=== PATIENT | male | born 1945 | race Caucasian/White ===

== ENCOUNTER → 2017-10-21 14:37 | Outpatient (CLI) | payer OTHER, SELFPAY ==
--- NOTE | 2017-10-21 | DI.RAD.S_ITS ---
PROCEDURE: XR ABDOMEN 1V INDICATIONS: KIDNEY STONE TECHNIQUE: One view of the abdomen acquired. COMPARISON: [facility], , ABDOMEN 1 VIEW, 01/29/2017, 13:52. FINDINGS: Surgical changes and devices: None. Bowel: Bowel gas pattern is normal. Soft tissues: The left kidney is mostly obscured by stool filled colon however these suspicious calcification over the mid body on last exam and appears to be present. In addition, there are 2 mm calcifications over the central portion of the right kidney. Visualized solid organ contours appear normal in size. Bones: No suspicious bony lesions. IMPRESSION: Probable bilateral nephrocalcinosis Dictated by: Juwan Skelton M.D. on 10/21/2017 at 15:04 Approved by: Juwan Skelton M.D. on 10/21/2017 at 15:06
== END ==
PROVIDERS: Visit Provider Urology
DX: N20.0 Calculus of kidney (principal)
CPT/HCPCS: 74018

== ENCOUNTER → 2017-12-05 13:48 | Outpatient (CLI) | payer OTHER, SELFPAY ==
--- NOTE | 2017-12-05 15:04 | P.PCN_ITS ---
Cardiac Stress Test Report Referral & Results Date Patient Seen: 12/05/17 Requesting provider: Vin Samson Indication: Chest pain Rest ECG: Unremarkable Procedure Note: Today following both written and verbal informed consent the patient was exercised according to a standard Eduar protocol patient went for a total of 7 min 28 sec achieving a maximum heart rate of 160 maximum systolic blood pressure of 210. This is approximately 10.1 METS. Exercise was terminated at this point because of 2-3 + mid chest discomfort as well as inability the patient to continue. Patient was also given Cardiolite through a previously started Hep-Lock IV by the nuclear technician approximately 1 minute prior to the cessation of exercise. There are no ST-T segment changes Occasional frequent PACs or identified throughout. For 5 beat runs of an SVT type pattern were also identified Patient was hypertensive throughout Functional aerobic impairment rated-10% on the active scale or 10% better than average Impression: No evidence of ischemia Excellent exercise capacity Dysrhythmia as above Hypertension as above Perfusion imaging to be reported separately Please note: Actual ECG tracings can be found in the PACS system.
--- NOTE | 2017-12-10 07:51 | DI.NM.S_ITS ---
DATE OF SERVICE: 12/05/2017 PROCEDURE: Exercise perfusion study. INDICATION: Abnormal exercise stress test, chest pain. RADIOPHARMACEUTICAL: 25.9 mCi technetium-99m Myoview IV was injected at stress, and 20.1 mCi technetium-99m Myoview IV was injected at rest. CARDIAC STRESS: Patient underwent exercise perfusion study under the supervision of an attending staff. She walked on Eduar protocol for 7 minutes 28 seconds, achieved maximum heart rate of 147, which was about 91% of target heart rate. Baseline blood pressure 190/100. Peak blood pressure 210/108. There was hypertensive blood pressure response. Patient has high blood pressure to begin with as well. Patient felt mid chest discomfort which was, on a scale of 1 to 10, about 2-3 in intensity. Got improved during recovery. Baseline rhythm was sinus in left axis. During stress, there was some nonspecific upsloping ST depression in leads V4 to V6 without any convincing ischemia. Occasional PACs and 1 short run of SVT. Functional aerobic impairment 0% on active scale. Achieved 10.1 METs of workload. RAW DATA: There was increased subdiaphragmatic activity. GATED STUDY: Stress LV ejection fraction 65%. I don't see any obvious wall motion abnormalities. Resting end-diastolic volume 117 mL. No transient ischemic dilatation. TID ratio 1.00, which is within normal limits. Lung/heart ratio is 0.39, which is within normal limits. MYOCARDIAL PERFUSION SCAN: Stress supine, resting supine, and stress prone images were compared to each other. Stress supine and resting supine images revealed small-sized mildly decreased perfusion of inferior wall and inferior apex, which got resolved during prone images, suggestive of diaphragmatic tissue attenuation artifact. No convincing ischemia on prone images. CONCLUSION: As far as perfusion scan is concerned, this is a normal myocardial perfusion scan with evidence of diaphragmatic tissue attenuation artifact which got resolved during prone images. However, patient has chest discomfort during exercise. He has hypertensive blood pressure response. No convincing ischemic EKG changes. No sustained ventricular arrhythmias. Correlate clinically and consider aggressive blood pressure control and risk factor modification. Alda Antonio - PHYSICAL THERAPY TEACHER/fn/kv doc#: [id number]/job#: [id number] dd: 12/06/2017 12:05:00 dt: 12/06/2017 12:06:00 DICTATING MD/COPIES TO: Deanna Crawford MD ; Vin Samson MD COPIES MNE: SWAPNA ; MEL
== END ==
PROVIDERS: PCP Internal Medicine; Visit Provider Internal Medicine
DX: R07.9 Chest pain, unspecified (principal); I49.9 Cardiac arrhythmia, unspecified; I10 Essential (primary) hypertension
CPT/HCPCS: 78452; 93016; 93017; 93018; A9502

== ENCOUNTER → 2018-09-30 13:38 | Outpatient (CLI) | payer OTHER, SELFPAY ==
[2018-09-30 16:11] LABS: Prostate Specific Antigen 4.61 ng/mL (0.10-4.00)
== END ==
PROVIDERS: PCP Internal Medicine; Visit Provider Urology
DX: Z12.5 Encounter for screening for malignant neoplasm of prostate (principal)
CPT/HCPCS: 36415; 84153

== ENCOUNTER → 2019-05-19 11:03 | Outpatient (CLI) | payer OTHER, SELFPAY ==
[2019-05-19 13:24] LABS: Blood Urea Nitrogen 23 mg/dL (9-20); Calcium 10.1 mg/dL (8.4-10.2); Carbon Dioxide 28 mmol/L (22-32); Chloride 104 mmol/L (98-107); Cholesterol 227 mg/dL (140-199); Estimated Glomerular Filt Rate > 60.0 mL/min (>60); Glucose 92 mg/dL (80-110); HDL Cholesterol 74 mg/dL (40-60); HEMOLYSIS < 15 (0-50); LDL Cholesterol Calculated 136 mg/dL (<100); Potassium 4.4 mmol/L (3.4-5.1); Sodium 144 mmol/L (137-145); Triglycerides 86 mg/dL (35-150)
[2019-05-19 13:53] LABS: Prostate Specific Antigen 5.59 ng/mL (0.10-4.00)
== END ==
PROVIDERS: PCP Internal Medicine; Referring Provider Internal Medicine; Visit Provider Internal Medicine
DX: Z00.00 Encounter for general adult medical examination without abnormal findings (principal); M15.0 Primary generalized (osteo)arthritis
CPT/HCPCS: 36415; 80048; 80061; 84153

== ENCOUNTER → 2020-01-13 11:47 | Outpatient (CLI) | payer OTHER, SELFPAY ==
[2020-01-13 14:16] LABS: Prostate Specific Antigen 5.33 ng/mL (0.10-4.00)
== END ==
PROVIDERS: PCP Internal Medicine; Referring Provider Urology; Visit Provider Urology
DX: R97.20 Elevated prostate specific antigen [PSA] (principal)
CPT/HCPCS: 36415; 84153

== ENCOUNTER 2020-04-22 11:58 | Emergency (ER) | payer OTHER, SELFPAY ==
[2020-04-22 12:32] VITALS: BP 171/82; PULSE 65; RESP 18; TEMP 36.6; O2SAT 98; BMI 20.6
[2020-04-22 12:56] LABS: COVID19 -Nasal RAPID Negative (Negative)
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
[2020-04-22 13:36] VITALS: BP 143/90; PULSE 74; RESP 15; O2SAT 98
== END 2020-04-22 13:44 | disposition home or self-care (01) ==
PROVIDERS: Emergency Provider Nurse Practitioner Family; PCP Internal Medicine
DX: R42 Dizziness and giddiness (principal); Z20.822 Contact with and (suspected) exposure to COVID-19
CPT/HCPCS: 87635; 99281; 99282; C9803

== ENCOUNTER → 2020-08-01 09:48 | Outpatient (CLI) | payer OTHER, SELFPAY ==
[2020-08-01 11:11] LABS: Alanine Aminotransferase 19 IU/L (<50); Albumin 4.4 g/dL (3.5-5.0); Albumin Globulin Ratio 1.6 (1.0-2.8); Alkaline Phosphatase 51 U/L (38-126); Aspartate Aminotransferase 35 IU/L (17-59); BUN Creatinine Ratio 24.8 (6-22); Bilirubin Total 0.5 mg/dL (0.2-1.3); Blood Urea Nitrogen 27 mg/dL (9-20); Calcium 9.5 mg/dL (8.4-10.2); Carbon Dioxide 29 mmol/L (22-32); Chloride 105 mmol/L (98-107); Cholesterol 196 mg/dL (140-199); Estimated Glomerular Filt Rate > 60.0 mL/min (>60); Globulin 2.8 g/dL (1.7-4.1); Glucose 99 mg/dL (80-110); HDL Cholesterol 71 mg/dL (40-60); HEMOLYSIS < 15 (0-50); LDL Cholesterol Calculated 116 mg/dL (<100); Potassium 4.3 mmol/L (3.4-5.1); Sodium 141 mmol/L (137-145); Total Protein 7.2 g/dL (6.3-8.2); Triglycerides 47 mg/dL (35-150)
== END ==
PROVIDERS: PCP Internal Medicine; Referring Provider Internal Medicine; Visit Provider Internal Medicine
DX: E78.2 Mixed hyperlipidemia (principal); M15.0 Primary generalized (osteo)arthritis
CPT/HCPCS: 36415; 80053; 80061

== ENCOUNTER → 2021-02-17 11:25 | Outpatient (CLI) | payer OTHER, SELFPAY ==
[2021-02-17 14:50] LABS: Prostate Specific Antigen 5.77 ng/mL (0.10-4.00)
== END ==
PROVIDERS: PCP Internal Medicine; Referring Provider Urology; Visit Provider Urology
DX: R97.20 Elevated prostate specific antigen [PSA] (principal)
CPT/HCPCS: 36415; 84153

== ENCOUNTER 2021-04-16 13:37 | Emergency (ER) | payer OTHER, SELFPAY ==
[2021-04-16] VITALS (8 sets, daily range): BP systolic 180–197; BP diastolic 85–100; PULSE 63–79; RESP 20; TEMP 36.7; O2SAT 98–100
[2021-04-16 14:31] LABS: Add Manual Diff / Slide Review NO; Alanine Aminotransferase 22 IU/L (<50); Albumin 4.6 g/dL (3.5-5.0); Albumin Globulin Ratio 1.5 (1.0-2.8); Alkaline Phosphatase 48 U/L (38-126); Aspartate Aminotransferase 37 IU/L (17-59); BUN Creatinine Ratio 15.1 (6-22); Basophils Absolute Auto 0 /uL (0-100); Basophils Percent Auto 0.3 % (0-2); Bilirubin Total 1.1 mg/dL (0.2-1.3); Blood Urea Nitrogen 19 mg/dL (9-20); Calcium 9.5 mg/dL (8.4-10.2); Carbon Dioxide 27 mmol/L (22-32); Chloride 108 mmol/L (98-107); Eosinophils Absolute Auto 0 /uL (0-450); Estimated Glomerular Filt Rate 55.8 mL/min (>60); Glucose 122 mg/dL (80-110); HEMOLYSIS < 15 (0-50); Hematocrit 44.4 % (41-53); Hemoglobin 15.2 g/dL (13.5-17.5); Lipase 39 U/L (23-300); Lymphocytes Absolute Auto 400 /uL (1100-4500); Lymphocytes Percent Auto 2.9 % (25-40); Mean Corpuscular HGB Conc 34.2 % (30-36); Mean Corpuscular Hemoglobin 30.2 PG (26-34); Mean Corpuscular Volume 88.3 fL (80-100); Monocytes Absolute Auto 600 /uL (0-900); Monocytes Percent Auto 4.3 % (3-14); Neutrophils Absolute Auto 12400 /uL (1500-7000); Neutrophils Percent Auto 92.5 % (50-75); Platelet Count 179 X10^3/uL (150-400); Potassium 3.6 mmol/L (3.4-5.1); Red Blood Cell Count 5.03 X10^6/uL (4.5-5.9); Red Cell Distribution Width 13.7 % (11.6-14.8); Sodium 139 mmol/L (137-145); Total Protein 7.6 g/dL (6.3-8.2); White Blood Cell Count 13.4 X10^3/uL (4.5-11.0)
--- NOTE | 2021-04-16 14:50 | ED_ITS ---
HPI - Abdominal Pain General Chief Complaint: Abdominal Pain Stated Complaint: Thinks kidney stones- low back/rib/hip pain Time Seen by Provider: 04/16/21 14:43 Source: patient Mode of arrival: Ambulatory History of Present Illness HPI narrative: Patient presents to the ED complaining of left flank pain radiating to the left side of the groin that started this morning at approximately 9:00 a.m.. Patient states he has had previous kidney stones in the past and feels like this is a kidney stone. He is complaining of nausea vomiting has not been able to drink much fluids today attempted to try to take a pain pill today however was vomited up soon after he took it. Patient states the pain is a sharp in nature and comes and goes however since being in the ED for the past few minutes it has been increasing. Pain is located in the left flank area which is tender to palpation. Because of his decrease in fluids he has not urinated today to determine if there was any blood in his urine. Related Data Previous Rx's Medication Instructions Recorded oxycodone-acetaminophen 10 mg-325 1 tab PO Q6H PRN #7 tab 04/16/21 mg tablet (Percocet) tamsulosin 0.4 mg capsule (Flomax) 0.4 mg PO BEDTIME #14 cap 04/16/21 Allergies Allergy/AdvReac Type Severity Reaction Status Date / Time No Known Drug Allergies Allergy Verified 04/22/20 12:32 Review of Systems Review of Systems ROS Unobtainable: All systems reviewed & are unremarkable except as noted in HPI and below Constitutional Constitutional: Denies chills, Denies fatigue, Denies fever(s), Denies frequent falls, Denies lethargy and Denies weakness Eyes Eyes: Denies change in vision, Denies eye discharge, Denies irritation and Denies loss of vision ENT Ears, Nose, Mouth, and Throat: Denies change in voice, Denies dizziness, Denies neck pain, Denies sore throat and Denies throat swelling Cardiovascular Cardiovascular: Denies chest pain, Denies irregular heart rhythm, Denies lightheadedness, Denies palpitations, Denies dyspnea, Denies dyspnea on exertion and Denies orthopnea Respiratory Respiratory: Denies cough, Denies dyspnea, Denies dyspnea on exertion and Denies wheezing Gastrointestinal Gastrointestinal: Denies abdominal pain, Denies change in bowel habits, Denies diarrhea, Reports nausea and Reports vomiting Genitourinary Genitourinary: Reports hematuria, Reports flank pain, Denies urinary incontinence and Denies urinary urgency Musculoskeletal Musculoskeletal: Denies back pain, Denies muscle weakness, Denies neck pain, Denies numbness and Denies tingling Integumentary/Breasts Skin/Breast: Denies pruritus, Denies erythema, Denies rash and Denies wounds Neurologic Neurologic: Denies behavioral changes, Denies confusion, Denies dizziness, Denies frequent falls, Denies loss of vision, Denies numbness, Denies tingling and Denies weakness Psychiatric Psychiatric: Denies anxiety, Denies behavioral changes, Denies confusion, Denies depression, Denies homicidal ideation and Denies suicidal ideation Endocrine Endocrine: Denies fatigue, Denies flushing and Denies palpitations Hematologic/Lymphatic Hematologic/Lymphatic: Denies easy bruising Allergic/Immunologic Allergic/Immunologic: Denies urticaria, Denies throat swelling and Denies wheezing Patient History Social History Smoking Status: Never smoker Smoking Status: Never smoker alcohol intake frequency: a few times a week Substance Use Type: does not use Exam Initial Vital Signs Initial Vital Signs: Vital Signs Temperature 98.1 F 04/16/21 13:48 Pulse Rate 63 04/16/21 13:48 Respiratory Rate 20 04/16/21 13:48 Blood Pressure 180/85 H 04/16/21 13:48 Pulse Oximetry 100 04/16/21 13:48 Course Course Course Narrative: Patient was given IV fluids pain medications and had improvement in the kidney stone pain. Patient is stable patient will be discharged home and told to follow-up with Dr. Rodriguez in the a.m. Orders Ordered: ED Orders 04/16/21 13:53 EKG-12 Lead Stat 04/16/21 14:00 Amylase Stat Complete Blood Count AUTO DIFF Stat Comprehensive Metabolic Panel Stat Lipase Stat 04/16/21 15:07 Urinalysis and Microscopic Stat 04/16/21 15:27 CT abdomen pelvis wo con Stat Ondansetron HCl (Ondansetron 4 Mg/2 Ml Inj) 4 mg IV Q4HR PRN PRN Reason: Nausea And Vomiting Last Admin: 04/16/21 15:18 Dose: 4 mg Documented by: ABRAM Discontinued Medications Sodium Chloride (Normal Saline 0.9%) 1,000 mls @ 1,000 mls/hr IV BOLUS ONE Stop: 04/16/21 15:47 Last Admin: 04/16/21 15:17 Dose: 1,000 mls/hr Documented by: ABRAM Morphine Sulfate (Morphine 4 Mg/Ml Inj) 4 mg IV NOW ONE Stop: 04/16/21 14:49 Last Admin: 04/16/21 15:16 Dose: 4 mg Documented by: ABRAM Reevaluation(s) Reevaluation #1: Patient responded well to the morphine and improvement in pain to 4/10 nausea has subsided Consultations Consultation #1: I spoke with Dr. Rodriguez and reviewed the CT scan. He was agreeable to see the patient in the clinic tomorrow advised to start the patient on Flomax q.h.s. and pain medications as needed. He recommended the patient to be NPO after midnight and be evaluated in the a.m. Vital Signs Vital signs: Vital Signs - 8 hr 04/16/21 13:48 04/16/21 15:16 Temperature 98.1 F Pulse Rate 63 Respiratory Rate 20 Blood Pressure 180/85 H 193/93 H Pulse Oximetry 100 MDM - Abdominal Pain Differential Diagnosis Differential diagnosis: Likely calculus of kidney Lab Data Result diagrams: 04/16/21 14:00 04/16/21 14:00 Labs: Lab Results 04/16/21 04/16/21 04/16/21 Range/Units 14:00 14:00 14:00 WBC 13.4 H (4.5-11.0) X10^3/uL RBC 5.03 (4.5-5.9) X10^6/uL Hgb 15.2 (13.5-17.5) g/dL Hct 44.4 (41-53) % MCV 88.3 (80-100) fL MCH 30.2 (26-34) PG MCHC 34.2 (30-36) % RDW 13.7 (11.6-14.8) % Plt Count 179 (150-400) X10^3/uL Neut % (Auto) 92.5 H (50-75) % Lymph % (Auto) 2.9 L (25-40) % Prentiss % (Auto) 4.3 (3-14) % Eos % (Auto) 0.0 L (2-4) % Baso % (Auto) 0.3 (0-2) % Neut # (Auto) 44677 H (1145-5038) /uL Lymph # (Auto) 400 L (8964-6377) /uL Prentiss # (Auto) 600 (0-900) /uL Eos # (Auto) 0 (0-450) /uL Baso # (Auto) 0 (0-100) /uL Sodium 139 (137-145) mmol/L Potassium 3.6 (3.4-5.1) mmol/L Chloride 108 H (98-107) mmol/L Carbon Dioxide 27 (22-32) mmol/L BUN 19 (9-20) mg/dL Creatinine 1.26 H (0.66-1.25) mg/dL Estimated GFR 55.8 L (>60) mL/min BUN/Creatinine Ratio 15.1 (6-22) Glucose 122 H (80-110) mg/dL Calcium 9.5 (8.4-10.2) mg/dL Total Bilirubin 1.1 (0.2-1.3) mg/dL AST 37 (17-59) IU/L ALT 22 (<50) IU/L Alkaline Phosphatase 48 (38-126) U/L Total Protein 7.6 (6.3-8.2) g/dL Albumin 4.6 (3.5-5.0) g/dL Globulin 3.0 (1.7-4.1) g/dL Albumin/Globulin Ratio 1.5 (1.0-2.8) Amylase 78 (30-110) U/L Lipase 39 (23-300) U/L Urine Color Urine Appearance Urine pH (4.5-8.0) Ur Specific [place] (1.000-1.035) Urine Protein (Negative) Urine Glucose (UA) (Negative) g/dL Urine Ketones (NEGATIVE) Urine Occult Blood (Negative) Urine Nitrate (Negative) Urine Bilirubin (NEGATIVE) Urine Urobilinogen (0.2) E.U./dL Ur Leukocyte Esterase (NEGATIVE) Urine RBC (0-5/HPF) Urine WBC (0-5/HPF) Urine Bacteria (None) Ur Culture Indicated? 04/16/21 Range/Units 15:07 WBC (4.5-11.0) X10^3/uL RBC (4.5-5.9) X10^6/uL Hgb (13.5-17.5) g/dL Hct (41-53) % MCV (80-100) fL MCH (26-34) PG MCHC (30-36) % RDW (11.6-14.8) % Plt Count (150-400) X10^3/uL Neut % (Auto) (50-75) % Lymph % (Auto) (25-40) % Prentiss % (Auto) (3-14) % Eos % (Auto) (2-4) % Baso % (Auto) (0-2) % Neut # (Auto) (8108-1681) /uL Lymph # (Auto) (5386-2730) /uL Prentiss # (Auto) (0-900) /uL Eos # (Auto) (0-450) /uL Baso # (Auto) (0-100) /uL Sodium (137-145) mmol/L Potassium (3.4-5.1) mmol/L Chloride (98-107) mmol/L Carbon Dioxide (22-32) mmol/L BUN (9-20) mg/dL Creatinine (0.66-1.25) mg/dL Estimated GFR (>60) mL/min BUN/Creatinine Ratio (6-22) Glucose (80-110) mg/dL Calcium (8.4-10.2) mg/dL Total Bilirubin (0.2-1.3) mg/dL AST (17-59) IU/L ALT (<50) IU/L Alkaline Phosphatase (38-126) U/L Total Protein (6.3-8.2) g/dL Albumin (3.5-5.0) g/dL Globulin (1.7-4.1) g/dL Albumin/Globulin Ratio (1.0-2.8) Amylase (30-110) U/L Lipase (23-300) U/L Urine Color Yellow Urine Appearance Clear Urine pH 7.5 (4.5-8.0) Ur Specific [place] 1.020 (1.000-1.035) Urine Protein Trace H (Negative) Urine Glucose (UA) Trace H (Negative) g/dL Urine Ketones Trace H (NEGATIVE) Urine Occult Blood 3+ H (Negative) Urine Nitrate Negative (Negative) Urine Bilirubin Negative (NEGATIVE) Urine Urobilinogen 0.2 (0.2) E.U./dL Ur Leukocyte Esterase Negative (NEGATIVE) Urine RBC 10-30/hpf H (0-5/HPF) Urine WBC 0-1/hpf (0-5/HPF) Urine Bacteria Few (2-10) H (None) Ur Culture Indicated? Cult not indicated Point of care testing: Urine Dip Bedside Urine Glucose Negative Bedside Urine Bilirubin - Negative Bedside Urine Ketone +/- 5 Urine Specific [place] 1.015 Bedside Urine Occult Blood +++ Bedside Urine pH 8.0 Bedside Urine Protein +/- 15 Bedside Urine Urobilinogen 0.2 Bedside Urine Nitrite - Negative Bedside Urine Leukocytes - Negative Esterase Imaging Data CT scan - abdomen/pelvis: Radiologist's Impression: PROCEDURE:? CT ABDOMEN PELVIS WO CON ? INDICATIONS:? kidney stone ? TECHNIQUE:? Axial sections were acquired from the lung bases to the pubic symphysis.? Coronal and sagittal reformats were performed.? For radiation dose reduction, the following was used: ?automated exposure control, adjustment of mA and/or kV according to patient size.? ? COMPARISON:? None. ? FINDINGS:? Image quality:? Excellent.? ? Lung bases:? Mild emphysematous changes and atelectasis at the lung bases.? There is a small hiatal hernia.? Fluid is noted within the distal esophagus with mild wall thickening.? Heart size appears within normal limits.? Likely mitral annular calcifications.? No pericardial effusion. Heart:? No significant findings. ? URINARY: Right Kidney:? Multiple nonobstructing nephroliths are noted.? No hydronephrosis.? Right Ureter:? No hydroureter. ? Left Kidney:? There is marked left-sided hydronephrosis.? There is perinephric inflammation.? No additional left-sided nephroliths are noted. Left Ureter:? There is an obstructing 4-5 mm calcification within the mid to distal left ureter.? There is a hydroureter. ? Bladder:? Normal wall thickness. No stones. ? ? ? ABDOMEN: Liver:? Unremarkable.? ? Gallbladder:? Unremarkable Biliary ducts:? Unremarkable.? ? Pancreas:? Unremarkable.? ? Spleen:? Unremarkable.? ? Adrenal Glands:? Unremarkable.? ? ? Stomach and Bowel:? Stomach, small bowel loops, and colon are unremarkable.? No evidence of appendicitis. Peritoneum:? No abnormal intraperitoneal fluid.? No free air.? ? Ventral Wall: ? No hernia.? Abdominal Nodes:? No enlarged retroperitoneal or mesenteric lymph nodes.? Vessels:? Aorta and inferior vena cava are normal in size.? Vascular calcifications are noted within the aorta and branch vessels. ? PELVIS: Pelvic Organs:? There is a layering stone noted within the posterior aspect of the bladder measuring 9 x 5 mm. Pelvic Nodes: Unremarkable. Miscellaneous: No inguinal hernias are seen. ? ? ? Bones:? Age-appropriate degenerative changes.? No acute osseous abnormality or aggressive appearing osseous lesion. ? IMPRESSION:? ? Obstructing 4-5 mm calcification within the mid to distal left ureter resulting in severe hydroureteronephrosis and significant left perinephric inflammation.? Additional nonobstructing right sided nephroliths.? There is also an bladder calcification measuring 9 x 5 mm. ? Mild emphysematous changes of the lung bases. ? Small hiatal hernia with mild wall thickening of the distal esophagus and fluid in the distal esophagus.? Recommend correlation for reflux and consider direct visualization with endoscopy. ? ? ? Dictated by: Lucho Rucker D.O. on 04/16/2021 at 14:55 ? ? Approved by: Lucho Rucker D.O. on 04/16/2021 at 15:01?? MDM Narrative Medical decision making narrative: Patient responded well to the morphine and I believe that the outpatient option is likely be beneficial. Patient will be sent home with Flomax and pain m edications and was told to follow-up with the Dr. Rodriguez is office in the a.m.. Discharge Plan Departure Patient Disposition: Home Clinical Impression: Calculus of kidney, Hydronephrosis Instructions: DI for Kidney Stones Activity Restrictions/Additional Instructions: Nothing by mouth after midnight tonight follow-up with Dr. Rodriguez in the a.m. Prescriptions: New tamsulosin [Flomax] 0.4 mg capsule 0.4 mg PO BEDTIME Qty: 14 0RF oxycodone-acetaminophen [Percocet] 10-325 mg tablet 1 tab PO Q6H PRN (Reason: pain) Qty: 7 0RF Referrals: Vin Samson MD [Primary Care Provider] - Amy Rodriguez MD [Physician] -
[2021-04-16 15:03] LABS: Amylase 78 U/L (30-110)
[2021-04-16] MEDS: MORPHINE 4 MG/ML INJ IV (15:16)
[2021-04-16] MEDS: SODIUM CHLORIDE 0.9% 1,000 ML 1000 ML IV (15:17)
[2021-04-16] MEDS: ONDANSETRON 4 MG/2 ML INJ IV (15:18)
--- NOTE | 2021-04-16 15:22 | PC.NURSE ---
Patient's BP 193/93 , states he is newly hypertensive. Has upcoming appointment with PCP to discuss HTN. Provider aware.
--- NOTE | 2021-04-16 15:27 | DI.CT.S_ITS ---
PROCEDURE: CT ABDOMEN PELVIS WO CON INDICATIONS: kidney stone TECHNIQUE: Axial sections were acquired from the lung bases to the pubic symphysis. Coronal and sagittal reformats were performed. For radiation dose reduction, the following was used: automated exposure control, adjustment of mA and/or kV according to patient size. COMPARISON: None. FINDINGS: Image quality: Excellent. Lung bases: Mild emphysematous changes and atelectasis at the lung bases. There is a small hiatal hernia. Fluid is noted within the distal esophagus with mild wall thickening. Heart size appears within normal limits. Likely mitral annular calcifications. No pericardial effusion. Heart: No significant findings. URINARY: Right Kidney: Multiple nonobstructing nephroliths are noted. No hydronephrosis. Right Ureter: No hydroureter. Left Kidney: There is marked left-sided hydronephrosis. There is perinephric inflammation. No additional left-sided nephroliths are noted. Left Ureter: There is an obstructing 4-5 mm calcification within the mid to distal left ureter. There is a hydroureter. Bladder: Normal wall thickness. No stones. ABDOMEN: Liver: Unremarkable. Gallbladder: Unremarkable Biliary ducts: Unremarkable. Pancreas: Unremarkable. Spleen: Unremarkable. Adrenal Glands: Unremarkable. Stomach and Bowel: Stomach, small bowel loops, and colon are unremarkable. No evidence of appendicitis. Peritoneum: No abnormal intraperitoneal fluid. No free air. Ventral Wall: No hernia. Abdominal Nodes: No enlarged retroperitoneal or mesenteric lymph nodes. Vessels: Aorta and inferior vena cava are normal in size. Vascular calcifications are noted within the aorta and branch vessels. PELVIS: Pelvic Organs: There is a layering stone noted within the posterior aspect of the bladder measuring 9 x 5 mm. Pelvic Nodes: Unremarkable. Miscellaneous: No inguinal hernias are seen. Bones: Age-appropriate degenerative changes. No acute osseous abnormality or aggressive appearing osseous lesion. IMPRESSION: Obstructing 4-5 mm calcification within the mid to distal left ureter resulting in severe hydroureteronephrosis and significant left perinephric inflammation. Additional nonobstructing right sided nephroliths. There is also an bladder calcification measuring 9 x 5 mm. Mild emphysematous changes of the lung bases. Small hiatal hernia with mild wall thickening of the distal esophagus and fluid in the distal esophagus. Recommend correlation for reflux and consider direct visualization with endoscopy. Dictated by: Lucho Rucker D.O. on 04/16/2021 at 14:55 Approved by: Lucho Rucker D.O. on 04/16/2021 at 15:01
[2021-04-16 15:52] LABS: Appearance Urine UA CLEAR; Bilirubin Urine UA NEGATIVE (NEGATIVE); Color Urine UA YELLOW; Glucose Urine UA TRACE g/dL (Negative); Ketones Urine UA TRACE (NEGATIVE); Leukocyte Esterase Urine UA NEGATIVE (NEGATIVE); Nitrite Urine UA NEGATIVE (Negative); Occult Blood Urine UA 3+ (Negative); Protein Urine UA TRACE (Negative); Urobilinogen Urine UA 0.2 E.U./dL (0.2); pH Urine UA 7.5 (4.5-8.0)
[2021-04-16 15:56] LABS: Bacteria Urine Few (2-10); Culture Indicated Urine Cult Not Indicated; RBC Urine 10-30/HPF (0-5/HPF); WBC Urine 0-1/HPF (0-5/HPF)
[2021-04-16] MEDS: TAMSULOSIN 0.4 MG CAPSULE PO (17:10)
== END 2021-04-16 17:23 | disposition home or self-care (01) ==
PROVIDERS: Emergency Medicine; Emergency Provider Physician Assistant; PCP Internal Medicine
DX: N13.2 Hydronephrosis with renal and ureteral calculous obstruction (principal); R03.0 Elevated blood-pressure reading, without diagnosis of hypertension
CPT/HCPCS: 36415; 74176; 80053; 81001; 81003; 82150; 83690; 85025; 93005; 93010; 96361; 96374; 96375; 99284; J2270; J2405

== ENCOUNTER → 2021-04-17 13:29 | Outpatient (CLI) | payer OTHER, SELFPAY ==
--- NOTE | 2021-04-17 13:30 | DI.RAD.S_ITS ---
PROCEDURE: XR KUB INDICATIONS: suspected kidney stones TECHNIQUE: One view of the abdomen acquired. COMPARISON: [facility], CT, CT ABDOMEN PELVIS WO CON, 04/16/2021, 15:41. FINDINGS: Surgical changes and devices: None. Bowel: Bowel gas pattern is normal. Soft tissues: 9 millimeter in maximum diameter stone projects over the lower pelvis which corresponds to bladder stone identified by CT scan. 4 millimeter rounded calcific density projects over the expected course of the distal left ureter in the lower pelvis which likely corresponds to left renal stone identified by prior CT scan. Visualized solid organ contours appear normal in size. Bones: No suspicious bony lesions. IMPRESSION: 1. Probable distal left ureteral stone which has advanced slightly in the interval since prior CT scan. 2. Urinary bladder stone unchanged compared to prior CT scan. Dictated by: Maye Rosenbaum MD, PhD on 04/17/2021 at 17:17 Approved by: Maye Rosenbaum MD, PhD on 04/17/2021 at 17:23
[2021-04-17 15:16] LABS: Prostate Specific Antigen 6.39 ng/mL (0.10-4.00)
== END ==
PROVIDERS: PCP Internal Medicine; Referring Provider Specialist; Visit Provider Specialist
DX: N20.0 Calculus of kidney (principal); N21.0 Calculus in bladder; Z12.5 Encounter for screening for malignant neoplasm of prostate
CPT/HCPCS: 36415; 74018; 84153

== ENCOUNTER 2021-04-18 14:31 | Observation (INO) | payer OTHER, SELFPAY ==
[2021-04-18] VITALS (16 sets, daily range): BP systolic 123–157; BP diastolic 67–100; PULSE 74–130; RESP 10–18; TEMP 36.6–37.5; O2SAT 95–100; BMI 20.4
--- NOTE | 2021-04-18 | DI.RAD.S_ITS ---
PROCEDURE: XR ABDOMEN 3V INDICATIONS: LEFT STENT PLACEMENT TECHNIQUE: One view of the abdomen acquired. COMPARISON: [facility], CT, CT ABDOMEN PELVIS WO CON, 04/16/2021, 15:41. [facility], CR, XR KUB, 04/17/2021, 14:36. [facility], CR, XR ABDOMEN 1V, 10/21/2017, 14:24. FINDINGS: 3 intraoperative fluoroscopy images demonstrate cannulization of the left ureter and placement of left ureteral stent. IMPRESSION: Placement of left ureteral stent. Dictated by: Emperatriz Waller M.D. on 04/20/2021 at 17:10 Approved by: Emperatriz Waller M.D. on 04/20/2021 at 17:12
[2021-04-18] MEDS: LACTATED RINGERS 1,000 ML 42 ML IV ×2 (16:14→19:35)
[2021-04-18 16:16] LABS: COVID19 -Nasal RAPID Negative (Negative)
[2021-04-18] MEDS: ONDANSETRON 4 MG/2 ML INJ IV (16:36)
[2021-04-18] MEDS: HYDROMORPHONE 2 MG INJ 0.5 MG IV (16:40)
--- NOTE | 2021-04-18 17:13 | PM.PREOP ---
Pre-operative Note Interval Note History & Physical reviewed/Exam performed by Physician: Yes Changes to H&P: No
[2021-04-18] MEDS: METOPROLOL TARTRATE 5 MG/5 ML INJ IV (17:35)
[2021-04-18] MEDS: CEFAZOLIN 2 GM/20 ML SYRINGE IV (18:45)
[2021-04-18] MEDS: BELLADONNA/OPIUM SUPPOSITORIES 1 EACH PR (19:03)
--- NOTE | 2021-04-18 19:32 | DI.ECHO.S_ITS ---
[place] [facility]---------+ [facility] +---------+ : : [address] : [place] : : : : [id number] : : : : Phone: [phone] Echocardiogram Report + + :Name: MIKKI BENNETT Study Date: 04/19/2021 Height: 77 in : :[facility] ReadingLocation: Weight: 172 lb : : Gender: Male BSA: 2.1 m2 : :: 1945 Age: 76 yrs BP: 132/67 mmHg: :Reason For Study: ATRIAL FIBRILLATION : :Ordering Physician: GERARD, : :MARYAM Performed By: Liss Michaud : :Referring: MARYAM GEE : + + Interpretation Summary 1) Normal left ventricular thickness and size with low normal systolic function (EF 50-55%). 2) Normal right ventricular size with low normal function. 3) No significant valvular abnormalities. 4) No prior Echo available for comparison. Procedure: A two-dimensional transthoracic echocardiogram with color flow and Doppler was performed. The study quality was technically adequate. There is no prior echocardiogram noted for this patient. The patient was in atrial fibrillation with heart rates between 76-101 bpm during the exam. Left Ventricle: The left ventricle is normal in size and wall thickness. The ejection fraction is estimated to be 50-55%. There are no focal wall motion abnormalities. Diastolic function could not be accurately assessed due to atrial fibrillation. Right Ventricle: The right ventricle is normal size. Right ventricular systolic function is at the lower limits of normal. Atria: The left atrial size is normal. Right atrial size is normal. There is no Doppler evidence for an interatrial shunt. Mitral Valve: There is a flat closure plane of the the mitral valve leaflets. There is trace mitral regurgitation. Aortic Valve: The aortic valve is trileaflet. The aortic valve opens well. There is no aortic valve stenosis. There is mild aortic regurgitation. Tricuspid Valve: The tricuspid valve is normal in structure and function. There is mild tricuspid regurgitation. Pulmonic Valve: The pulmonic valve is not well seen, but is grossly normal. There is no pulmonic valvular regurgitation. Great Vessels: The aortic root is normal size. The ascending aorta is mildly enlarged. The IVC is of normal diameter and collapses greater than 50% with a sniff. This suggests a low right atrial pressure of 3 mm Hg. Pericardium/ Pleura There is no pericardial effusion. There is no pleural effusion. MMode/2D Measurements & Calculations LVIDd: 4.7 cm LVOT diam: 2.0 cm LVIDs: 3.4 cm Ao root diam: 3.9 cm FS: 26.7 % asc Aorta Diam: 3.8 cm IVSd: 0.71 cm Ao Arch Diam (Prox Trans): 2.8 cm LVPWd: 0.91 cm LV bravo. diameter/BSA (cm/m^2): 2.2 LV sys. diameter/BSA (cm/m^2): 1.6 LA A2 area: 21.3 cm2 RA long axis: 5.4 cm LA A4 area: 18.0 cm2 RA area: 18.4 cm2 LA length (vol): 5.4 cm RA vol: 53.5 ml LA vol: 60.7 ml RA : 25.5 ml/m2 LA vol index: 28.9 ml/m2 IVC diam: 1.8 cm RVD1 (basal): 3.6 cm TAPSE: 1.9 cm Doppler Measurements & Calculations Ao V2 max: 100.8 cm/sec LVOT Max Abe: 74.2 cm/sec Ao V2 mean: 75.9 cm/sec LV V1 max P.2 mmHg Ao max P.1 mmHg LV V1 VTI: 12.2 cm Ao mean P.5 mmHg JEET(I,D): 2.2 cm2 Ao V2 VTI: 17.9 cm JEET(V,D): 2.3 cm2 sev ratio: 0.68 JEET indexed to BSA (cm^2/m^2): 1.0 MV E max abe: 89.9 cm/sec TR max abe: 235.4 cm/sec MV A max abe: 2.6 cm/sec TR max P.2 mmHg MV E/A: 34.0 PA pr(Accel): 15.6 mmHg Med Peak E' Abe: 13.2 cm/sec E/E' med: 6.8 Lat Peak E' Abe: 12.8 cm/sec E/E' lat: 7.0 E/e' average: 6.9 MV dec time: 0.22 sec SV(LVOT): 38.9 ml Reading Physician:10:04 AM
--- NOTE | 2021-04-18 19:39 | SUR.OPER ---
Lithotomy on padded OR bed, head on pillow, arms secured on padded arm boards at <90 degrees abduction. Legs secured in padded yellow fins stirrups.
--- NOTE | 2021-04-18 19:40 | P.CONS_ITS ---
History of Present Illness Consult details Date Patient Seen: 04/18/21 Chief complaint: KIDNEY STONES Reason for consult: New Onset AFIB Narrative: Xander Lizama is a 76-year-old male who has been seen in the ED for recurrent renal calculus. Mr. Lizama denies any pertinent medical history other than recurrent calcium nephrolithiasis. He is a patient of Dr. Rodriguez urology who has taken the patient to the OR today for a calculus of the ureter, calculus in the bladder with lower urinary tract symptoms, he is also treating patient's elevated PSA. In preop the patient was found to be in atrial fibrillation, new onset. Dr. Rodriguez graciously requested that the hospitalist Service consult and work patient up for new onset atrial fibrillation. Postop acute care floor admit-temp 99.3?, BP 147/81, HR 80, RR 18, O2 saturation 98% on room air. The patient is resting comfortably in bed denies chest pain, shortness of breath, headache, abdominal pain, nausea, vomiting. Patient does complain of pain in the urethra of his penis, has not received any pain medication at this time. Patient is placed on tele and demonstrates atrial fibrillation with a rate of 80. Patient denies any history of atrial fibrillation, and no known family history. Patient is stable and in no distress at this time. Meds Home Medications and Allergies Home Medications Medication Instructions Recorded Confirmed Type oxycodone-acetaminophen 10 mg-325 1 tab PO Q6H PRN #7 tab 04/16/21 04/18/21 Rx mg tablet (Percocet) tamsulosin 0.4 mg capsule (Flomax) 0.4 mg PO BEDTIME #14 cap 04/16/21 04/18/21 Rx ibuprofen 200 mg capsule 400 mg PO Q6H PRN 04/18/21 04/18/21 History tamsulosin 0.4 mg capsule 0.4 mg PO BEDTIME #90 cap 04/18/21 04/18/21 Rx Allergies Allergy/AdvReac Type Severity Reaction Status Date / Time No Known Drug Allergies Allergy Verified 04/18/21 15:40 Review of Systems Review of Systems Narrative: All 12 point systems reviewed with the patient and are negative except otherwise documented. Exam Vital Signs (past 8 hours): - 04/18/21 15:45 04/18/21 16:33 04/18/21 16:45 Temperature 98.2 F Pulse Rate 120 H 126 H 115 H Respiratory Rate 16 10 L 12 Blood Pressure 151/85 H 157/90 H 146/100 H Pulse Oximetry 99 99 99 04/18/21 17:00 04/18/21 17:15 04/18/21 17:30 Temperature Pulse Rate 115 H 114 H 108 H Respiratory Rate 10 L 16 15 Blood Pressure 146/100 H 143/94 H 148/89 H Pulse Oximetry 99 99 99 04/18/21 17:45 04/18/21 18:00 Temperature Pulse Rate 107 H 115 H Respiratory Rate 12 16 Blood Pressure 146/85 H 142/88 H Pulse Oximetry 98 99 Oxygen Delivery Method Room Air Narrative Exam Narrative: General: Patient is a well-developed, well-nourished male who appears younger than stated age, in no distress at this time. HEENT: Normocephalic, atraumatic, extraocular muscles intact, oral pharynx is clear and mucous membranes are moist. Neck is supple and symmetric, trachea is midline, no adenopathy, no thyroid enlargement, nontender, no masses palpated. Negative for JVD Chest: Normal AP diameter and contour without kyphoscoliosis, no nasal flaring, retractions, or tachypneic labored Lungs: Auscultation of all lung palmer are clear without adventitious sounds, wheezes, rhonchi, or rales. Cardio: regular rate and atiral fib rhythm without murmur, rubs, or gallops, no carotid bruit, no cardiac pulsations present. Abdomen: Soft Bowel sounds are hypoactive present in all 4 quadrants Genitourinary: Espinoza patient draining dark bloody urine. Musculoskeletal: Muscle tone is equal within normal limits, no deformity, crepitus, effusions, cyanosis, clubbing or edema present. Full range of motion intact radial and pedal pulses are normal. Skin: Warm dry and intact without rashes, ulcerations or petechiae. Neuro: Alert and orientated x3, sensation to touch intact, no gross deficits noted of cranial nerves. Psych: Patient has a well-kept appearance, appropriate affect, mental status attitude thought context and judgment are appropriate for age. Objective Labs Labs: Laboratory Results - last 24 hr 04/18/21 15:14 SARS-CoV-2 (PCR) Negative [facility] Medical History Bladder calculus Elevated PSA Left ureteral calculus Lower urinary tract symptoms (LUTS) Male circumcision Surgical History H/O hernia repair History of appendectomy Family History Father Stroke Gout Hypertension Mother Cancer Sister Cancer Social History marital status: number of children: 4 household members: spouse Tobacco & Substance Use Smoking Status: Never smoker Assessment & Plan Assessment & Plan narrative: Mr. Antonio Lizama is a 76-year-old male with a medical history of recurrent calcium nephrolithiasis and elevated PSA who was admitted and taken to the OR today by Dr. Rodriguez urology to address calculus of the ureter, and calculus of the bladder with lower urinary tract symptoms, patient was found to be in atrial fibrillation in preop, the hospitalist service was requested to consult/risk stratification for new onset atrial fibrillation. We would like to thank Dr. Rodriguez for the opportunity to assist in the care of his patient. 1. Recurrent calcium nephrolithiasis, calculus of the ureter, calculus of the bladder with lower urinary tract symptoms, acute on chronic, present on admission -managed by Dr. Rodriguez urology -Surgery 04/18/2021 :1. Cystoscopy/left ureteroscopic laser lithotripsy. 2. Cystoscopy/placement left ureteral stent (6 Kyrgyz by 22-32 cm multi-length). 3. Laser cystolitholapaxy. 2. Elevated PSA, acute, in the setting of BPH, acute on chronic, present on admission -managed by Dr. Rodriguez urology -continue tamsulosin 3. New onset atrial fibrillation with RVR found on EKG, acute, present on admission -I personally reviewed EKG atrial fibrillation with RVR, at a rate of 118 with PVCs and nonspecific ST abnormalities -this is a change from the EKG on 04/16/[address] Pérez normal sinus rhythm with a rate of 79 with left access, stress test Dr. Pérez 12/05/2017-found to be normal with the exception of hypertension and short runs of SVT and occasional PACs -patient placed on telemedicine: Atrial fibrillation with a rate of 80 patient is stable and asymptomatic. -patient to be placed on telemedicine -initiate Eliquis 5 mg b.i.d.,24 hours post surgery on 04/19/2021 @2100 -initiate on 04/19/2021 metoprolol 25 mg p.o. b.i.d. -patient to have drawn once he returns from surgery CBC, CMP, TSH, free T4, Mag, troponin x3 -labs from 04/16/2021 WBC 13.4, new 12,400, ENGAGEMENT SPECIALIST 1.26, GFR 55.8, PSA 6.39, urinalysis was negative -echo and stress test ordered -recommend patient be given referral to Cardiology for outpatient follow-up on discharge 4. Malnutrition as evidence by BMI of 20.4, acute on chronic, present on admission -place order for dietary consult Code status:Full Surrogate decision maker: Indigo Lizama COVID PCR:Negative COVID vaccination: Pfizer x2, Moderna booster DVT/VTE prophylaxis: SCD's Disposition: To be determined by Dr. Rodriguez I have utilized all available immediate resources to obtain, update, or review the patient's current medications. I confirmed that the patient's advanced care plan is present, Code status is documented and/or surrogate decision maker is listed in the patient's medical record. Time Spent With Patient Critical Care time: I spent a total of [] minutes of critical care time on this patient's care today; this time is exclusive of procedural time.
--- NOTE | 2021-04-18 20:06 | P.OP_ITS ---
Operative Date/Time/Diagnoses Date of procedure: 04/18/21 Time of procedure: 20:06 Pre-op diagnosis: 1. Obstructing 5 mm left distal ureteral calculus. 2. Intractable left renal colic. 3. 9 mm bladder calculus. Post-op diagnosis: same Procedure & Clinicians Procedure: 1. Cystoscopy/left ureteroscopic laser lithotripsy. 2. Cystoscopy/placement left ureteral stent (6 English by 22-32 cm multi-length). 3. Laser cystolitholapaxy. Same procedure as scheduled: Yes Indications: 1. Obstructing 5 mm left distal ureteral calculus. 2. Intractable left renal colic. 3. 9 mm bladder calculus. Surgeon: Amy Rodriguez Click Yes if Unassisted: Yes Anesthesia Type: General Operative Notes Findings: 1. Urethra-penile segment normal. Majority of bulbar segment normal caliber without annular stricture or lesion. Just very distal to the external sphincter there is 20-22 English short segment annular stricture. 2. External sphincter-coapted with normal overlying urothelium. 3. Prostate-5+ cm length with obstructing trilobar hyperplasia and moderate elevation of median bar. 4. Bladder-1 to 2+ trabeculation. There is a lobulated and somewhat spiculated calculus lying dependently in the depressed bladder base. There is moderate intravesical protrusion of median lobe. No other stone, tumor, or diverticulum noted. 5. Left ureter-the index calculus has migrated distally and was impacted at the left ureterovesical junction tightly. During positioning of the balloon dilating catheter attempt was made to mobilize the stone and push it retrograde without success. The balloon was dilated with the calculus located about the midpoint. Inspection of the ureter after deflation of the dilating balloon indicated there was partial extrusion of the index calculus into the posterior lateral it ureteral wall at the left ureterovesical junction that involved the mucosa and superficial depth of the muscularis. No fat was seen. Closure Type: not applicable Specimen(s): other (Bladder stone fragments, possibly admixed with left ureteral fragments.) Applied: catheter (Twenty English [address] Espinoza catheter) and other (6 English by 22-32 cm left multi length ureteral stent.) Estimated Blood Loss (mL): 2 Blood products transfused: none Procedure in detail: Patient was positioned supine was administered general anesthesia. He was then repositioned semi lithotomy and the lower abdomen, genitalia, and groin were then prepped and draped in sterile fashion. A 22 English panendoscope was passed lower urinary tract with the findings as described above. Next a 0.35 hybrid guidewire was advanced through the working port of the panendoscope and advanced the left collecting system under direct and fluoroscopic guidance. Over this a 15 English by 6 cm length balloon dilating catheter was positioned across the left ureterovesical junction. The balloon was then inflated to 18 atmospheres and held in position for 5 minutes after which the balloon was deflated and withdrawn off the guidewire. The panendoscope was backloaded off the guidewire. The guidewire was then secured to the drape. Semi rigid ureteral scope was then advanced lower urinary track and then advanced the left ureteral orifice and advanced proximally were upon the stone was found be nearly filling the luminal diameter of the recently dilated ureter. With gentle manipulation it was repositioned a little bit more proximally. The partial wall defect was then noted to the left and posterior of the ureteral wall at the left ureterovesical junction. Next, a 200 micron fiber was selected and the patient and all operating room personnel were fitted with laser safety eyewear. Laser lithotripsy was then commenced with excellent subsequent fragmentation and clearance of the fragments from the ureteral lumen. A 2nd look more proximally confirmed the same. Ureteral scope was then removed. The 22 English panendoscope was then front loaded on the existing guidewire and advanced proximally. Now a 6 English by 22- 32 cm multi-length stent was selected and this was advanced over the guidewire under direct and fluoroscopic guidance. Position was confirmed fluoroscopically. NO RETRIEVAL LINE WAS LEFT ATTACHED. The castro endoscope was then removed. The continuous-flow laser cystoscope was then prepared and advanced lower urinary track same 200 micron fiber was then utilized to fragment and then dust the index calculus lying in the dependent portion of the bladder base. Next, the Ellick evacuated was then utilized to clear the bladder of the multitude of tiny particles of sand and fragments. The bladder was then filled partially filled and emptied twice to clear any further calculus debris. A final inspection revealed no visible evidence of sand or fragments. The bladder was then partially filled and the laser cystoscope was removed. A 20 English Espionza catheter was then inserted lower urinary tract, the balloon inflated 10 cc, and was then placed to gravity drainage. The patient was then repositioned in supine, awakened, and transferred to awakened in stable condition for transport to PACU. Complications: none Post-operative Condition: stable Disposition: PACU Plan for aftercare: Admit to hospitalist service-acute care for monitoring of new onset atrial fibrillation.
[2021-04-18] MEDS: fentaNYL 100 MCG/2 ML INJ IV ×2 (20:35→20:50)
--- NOTE | 2021-04-18 21:54 | SUR.PHASEI ---
2018- Upon arriving to PACU, pt disoriented and needing assist to stay in the bed and not pull cheek catheter and IV line. Assist from Jacki Brasher RN, Marry ARAUJO and Dr Welch.
--- NOTE | 2021-04-18 21:57 | SUR.PHASEI ---
2044- Medicated with second dose of pain meds due to patient stating continuing pain at cheek catheter site. Pt reoriented and medicated for pain to alleviate discomfort. Pt continuing to attempt to climb out of bed and difficult to restrain so he would not hurt himself.
--- NOTE | 2021-04-18 21:59 | SUR.PHASEI ---
2054-Pt becoming more cooperative and able to reorient. Pt now aware that he is in the recovery room and surgery has been completed. Report to Polly ARAUJO on the floor and aware that pt is becoming more oriented.
--- NOTE | 2021-04-18 22:01 | SUR.PHASEI ---
2109- Escorting pt via stretcher with GAYLE Echeverria escorting.
[2021-04-18] MEDS: OXYCODONE IR 5 MG TABLET PO (23:16)
[2021-04-18] MEDS: OXYCODONE/ACETAMINOPHEN 5/325 TABLET 1 TAB PO (23:17)
[2021-04-18] MEDS: OXYBUTYNIN 5 MG TABLET PO (23:18)
[2021-04-18 23:28] LABS: Magnesium 1.8 mg/dL (1.6-2.3)
[2021-04-18 23:40] LABS: Troponin I < 0.012 ng/mL (0.01-0.034)
[2021-04-18 23:50] LABS: Free T4, Direct Thyroxine 1.21 ng/dL (0.78-2.19)
[2021-04-19] VITALS (8 sets, daily range): BP systolic 101–151; BP diastolic 61–83; PULSE 72–89; RESP 18; TEMP 36.9–37.4; O2SAT 96–99
[2021-04-19 00:04] LABS: Thyroid Stimulating Hormone 2.46 uIU/mL (0.47-4.68)
[2021-04-19] MEDS: ACETAMINOPHEN 325 MG TABLET 975 MG PO (01:13)
[2021-04-19] MEDS: OXYBUTYNIN 5 MG TABLET PO ×3 (05:28→22:02)
[2021-04-19 05:46] LABS: INR 1.2 (0.9-1.3)
[2021-04-19 06:14] LABS: Troponin I < 0.012 ng/mL (0.01-0.034)
[2021-04-19 15:34] LABS: Troponin I < 0.012 ng/mL (0.01-0.034)
--- NOTE | 2021-04-19 18:29 | P.PN_ITS ---
Subjective Subjective Date Patient Seen: 04/19/21 Interval history: 76-year-old male admitted to the hospital for recurrent renal calculus. Patient underwent cystoscopy, left ureteroscopic laser lithotripsy, cystoscopy with left ureteral stent placement Patient was found to have an obstructing 5 mm distal ureteral calculus, there was a 9 mm bladder calculus. The patient now has a Espinoza catheter with hematuria as anticipated. We were asked to consult regarding atrial fibrillation. Exam Vital Signs (past 8 hours): - 04/19/21 11:00 04/19/21 12:30 Temperature 99.3 F Pulse Rate 86 Respiratory Rate 18 Blood Pressure 113/73 Pulse Oximetry 96 97 Oxygen Delivery Method Room Air Oxygen Flow Rate 0 Narrative Exam Narrative: Pleasant gentleman lying in bed in no obvious distress Resp Other: Lungs are clear to auscultation Cardio Other: Cardiac exam regular rate and rhythm normal S1-S2 GI Other: Abdomen soft nontender nondistended Other: Espinoza in place Extrem Other: Extremity no edema Objective Labs Labs: Laboratory Results - last 24 hr 04/18/21 04/18/21 04/19/21 23:05 23:05 05:16 PT 13.0 H INR 1.2 Magnesium 1.8 Troponin I < 0.012 TSH 2.46 Free T4 1.21 04/19/21 04/19/21 05:16 14:39 PT INR Magnesium Troponin I < 0.012 < 0.012 TSH Free T4 PFSH Medical History Bladder calculus Elevated PSA Left ureteral calculus Lower urinary tract symptoms (LUTS) Male circumcision Surgical History H/O hernia repair History of appendectomy Family History Father Stroke Gout Hypertension Mother Cancer Sister Cancer Social History marital status: number of children: 4 household members: spouse Smoking Status: Never smoker alcohol intake: current Assessment & Plan Assessment & Plan narrative: ?Recurrent calcium nephrolithiasis, calculus of the ureter, calculus of the bladder with lower urinary tract symptoms, acute on chronic, present on admission -managed by Dr. Rodriguez urology -Surgery? 04/18/2021 :1. Cystoscopy/left ureteroscopic laser lithotripsy. 2. Cystoscopy/placement left ureteral stent (6 Maldivian by 22-32 cm multi- length). 3. Laser cystolitholapaxy. 2. Elevated PSA, acute, in the setting of BPH, acute on chronic, present on admission -managed by Dr. Rodriguez urology -continue tamsulosin 3. New onset atrial fibrillation with RVR found on EKG, acute, present on admission -I personally reviewed EKG atrial fibrillation with RVR, at a rate of 118 with PVCs and nonspecific ST abnormalities -this is a change from the EKG on 04/16/[address] Pérez normal sinus rhythm with a rate of 79 with left access, stress test Dr. Pérez 12/05/2017-found to be normal with the exception of hypertension and short runs of SVT and occa sional PACs -patient placed on telemedicine:? Atrial fibrillation with a rate of 80 patient is stable and asymptomatic. -patient to be placed on telemedicine -initiate Eliquis 5 mg b.i.d.,24 hours post surgery on 04/19/2021 @2100, will defer Eliquis at this time as the patient is continuing to have hematuria consider starting as an outpatient -initiate on 04/19/2021 metoprolol 25 mg p.o. b.i.d. -patient to have drawn once he returns from surgery CBC, CMP, TSH, free T4, Mag, troponin x3 -labs from 04/16/2021 WBC 13.4, new 12,400, FORM TAMPING MACHINE OPERATOR 1.26, GFR 55.8, PSA 6.39, urinalysis was negative -echo and stress test ordered, stress test negative -recommend patient be given referral to Cardiology for outpatient follow-up on discharge -recommend discharge which when okay with Dr. Rodriguez 4. Malnutrition as evidence by BMI of 20.4, acute on chronic, present on admission -place order for dietary consult Time Spent With Patient Critical Care time: I spent a total of [] minutes of critical care time on this patient's care today; this time is exclusive of procedural time.
--- NOTE | 2021-04-19 20:56 | DI.NM.S_ITS ---
DATE OF SERVICE: 04/19/2021 PROCEDURE PERFORMED: Pharmacologic vasodilator stress and rest myocardial perfusion imaging with gating to assess ejection fraction and regional wall motion. ORDERING PROVIDER.: AKHIL Goel. INDICATIONS: The patient is a 76-year-old male admitted with recurrent renal calculus who had postoperative atrial fibrillation. CARDIAC STRESS: Per protocol, 0.4 mg of regadenoson was infused with a normal hemodynamic response with the patient developing a maximum heart rate of 152 BPM (105% of his predicted maximum), up from resting heart rate of 96 BPM. He developed some mild chest pressure with stress. His resting ECG shows atrial fibrillation at 99 BPM with some nonspecific ST-segment abnormalities. With stress, there is slight accentuation of the ST-segment abnormalities but they remain nonspecific. There were no additional arrhythmias. Per protocol, 24.7 millicuries of technetium-99m Myoview was injected and he was imaged 10 minutes later using the quantitated gated SPECT protocol. Earlier in the day while at rest, he had been injected with 12.6 millicuries of technetium- 99m Myoview and was imaged 25 minutes later, again using a gated SPECT acquisition protocol. FINDINGS: 1. Raw data: There is fair myocardial tracer uptake without significant motion artifact. Prone imaging was unable to be performed because of his indwelling Espinoza catheter. The lung/heart ratio was normal at 0.36 with a TID ratio of 1.26, which is borderline increased but nonspecific with vasodilator stress and does not appear to be visually apparent. 2. Quantitated gated SPECT: Post-stress ejection fraction is 71% without any focal wall motion abnormality and, specifically, the inferior wall has good contractility. The resting ejection fraction is 73% with an end-diastolic volume of 97 mL. 3. Myocardial perfusion imaging: Post-stress supine images shows a fairly normal myocardial perfusion pattern with a mild defect in the proximal to mid inferior wall in a pattern that would be consistent with diaphragmatic attenuation. While prone imaging was not available on today's study, this defect resolved on prone imaging on his previous exam, supporting that it likely represents diaphragmatic attenuation. His resting images show a similar perfusion pattern without any significant improvement. IMPRESSION: 1. Normal myocardial perfusion study. 2. Mild fixed proximal to mid inferior wall perfusion defect that likely reflects diaphragmatic attenuation artifact. There is no evidence for significant myocardial ischemia. 3. Normal left ventricular size and systolic function without any focal wall motion abnormality and, specifically, the inferior wall appears to have normal contractility. While the TID ratio is borderline elevated, this is nonspecific and not visually apparent on the images. 5. Baseline ECG shows atrial fibrillation with borderline heart rate control with accentuation of heart rate and baseline ST-segment abnormalities with stress, but remain nonspecific. He had no other arrhythmias. 6. Compared to his previous myocardial perfusion study of 12/05/2017, an identical perfusion pattern is seen with resolution of the inferior defect with prone imaging previously. His previous ejection fraction was 65% with an end- diastolic volume of 117 mL, suggesting slight interval decrease in size. It is notable that he also had chest discomfort with nonspecific ST-segment changes with stress on the previous study. Thus, there has been no significant change since the previous exam. Antonio Lizama - CATALINA/winsome/abdias doc#: [id number]/job#: [id number] dd: 04/19/2021 17:02:00 dt: 04/19/2021 20:03:00 DICTATING MD/COPIES TO: Nigel Alvarez MD; AKHIL GOEL; Amy Rodriguez MD COPIES MNE: JIMBO; ;
[2021-04-20] VITALS: BP 117/68; PULSE 65; RESP 18; TEMP 36.9; O2SAT 98
[2021-04-20 04:00] VITALS: BP 130/83; PULSE 67; RESP 14; TEMP 36.8; O2SAT 99
[2021-04-20] MEDS: OXYBUTYNIN 5 MG TABLET PO (06:25)
[2021-04-20 08:55] VITALS: BP 158/89; PULSE 85; RESP 16; TEMP 36.5; O2SAT 98
[2021-04-20] MEDS: TAMSULOSIN 0.4 MG CAPSULE PO (10:09)
[2021-04-20] MEDS: METOPROLOL ER 25 MG TABLET PO (10:09)
--- NOTE | 2021-04-20 13:35 | PC.NURSE ---
Pt discharged to home by provider. Cheek care teaching provided to and pt. Verbalized understanding of all written and demonstration instructions. Switched to leg bag, new large cheek bag provided for sleeping. Pt states he will call to schedule f/up appts with cardiology, PCP and will see Urology on Saturday04/24/21. Pt dressed and escorted off unit to private vehicle. Pt left in stable condition with all personal belongings.
--- NOTE | 2021-04-20 15:06 | CM.DPNOTE ---
DCP Assessment Note Pt is a 76 yo male, resident of [place], now POD#1 from Cystoscopy/left ureteroscopic laser lithotripsy, Cystoscopy/placement left ureteral stent , Laser cystolitholapaxy by Dr Rodriguez PCP: Vin Samson Payer: Dale ANN Reviewed chart, met w/patient this morning to review DCP; patient is eager to return home, spouse Indigo will transport home and is available to assist. Patient is active and indp at baseline and has no questions or concerns about his DC home today. Appreciative of the visit. Plan: DC home today w/spouse, close outpatient f/u recommended. No needs from CM team JAMAR German
--- NOTE | 2021-04-23 07:56 | P.DS_ITS ---
History of Present Illness History of Present Illness Date Patient Seen: 04/20/21 Chief complaint: KIDNEY STONES Narrative: Xander Lizama is a 76-year-old male who has been seen in the ED for recurrent renal calculus. Mr. Lizama denies any pertinent medical history other than recurrent calcium nephrolithiasis.? He is a patient of Dr. Rodriguez urology who has taken the patient to the OR today for a calculus of the ureter, calculus in the bladder with lower urinary tract symptoms, he is also treating patient's elevated PSA.? In preop the patient was found to be in atrial fibrillation, new onset.? Dr. Rodriguez graciously requested that the hospitalist Service consult and work patient up for new onset atrial fibrillation. Postop acute care floor admit-temp 99.3?, BP 147/81, HR 80, RR 18, O2 saturation 98% on room air.? The patient is resting comfortably in bed denies chest pain, shortness of breath, headache, abdominal pain, nausea, vomiting.? Patient does complain of pain in the urethra of his penis, has not received any pain medication at this time.? Patient is placed on tele and demonstrates atrial fibrillation with a rate of 80.? Patient denies any history of atrial fibrillation, and no known family history.? Patient is stable and in no distress at this time. Discharge Providers Provider Date of admission: 04/18/21 14:31 Discharge Date: 04/20/21 Primary care physician: Vin Samson MD Consults: 04/18/21 17:52 Consult to Physician Routine Comment: Consulting Provider: Afshin Soler Reason for consultation: new onset atrial fibrillation Has provider been notified: Yes Discharge provider: Gaby Keith MD Summary Hospital Course Discharge Diagnosis: 1. Cystoscopy/left ureteroscopic laser lithotripsy. 2. Cystoscopy/placement left ureteral stent (6 Portuguese by 22-32 cm multi-length). 3. Laser cystolitholapaxy. 4. Obstructing 5 mm left distal ureteral calculus, with intractable left renal colic 5. 9 mm bladder calculus 6. New onset atrial fibrillation Hospital Course: The patient presented to Dr. Rodriguez for evaluation of intractable pain due to recurrent calcium nephrolithiasis. He was well until April 16 when he developed acute onset severe left pain. A CT KUB revealed an obstructing 5 mm mid left ureteral calculus and incidental finding of a 9 mm bladder calculus. He was admitted to the hospital for definitive treatment. The patient underwent cystoscopy, left ureteroscopic laser lithotripsy, he had a cystoscopy with placement of left ureteral stent as well. Preoperatively the patient was found to be in atrial fibrillation. His rate was controlled. The hospitalist service was asked to consult to manage his atrial fibrillation. Patient was placed on metoprolol for rate control. He tolerated this well. He remained intermittently in and out of atrial fibrillation. As such the patient was also started on apixaban his stroke prophylaxis when approved by Urology. The patient had no further complication and was deemed appropriate for discharge home. Patient will be referred back to Dr. Samson for cardiology consultation. He will continue on metoprolol and apixaban at this time. The patient was in no acute distress. Leg bag was placed. He will see Dr. Rodriguez in the office on Saturday following discharge for further evaluation. Status at Discharge Cognitive/behavioral status at discharge: oriented Functional status at discharge: independent ambulation Overall status at discharge: patient is progressing back to baseline Exam Vital Signs (past 8 hours): Oxygen Delivery Method Room Air Oxygen Flow Rate 0 Narrative Exam Narrative: Pleasant male in no acute distress Resp Other: Lungs clear to auscultation Cardio Other: Cardiac exam: Irregularly irregular normal S1-S2 GI Other: Abdomen soft nontender nondistended Other: Espinoza catheter in place, hematuria noted Extrem Other: No edema PFSH Medical History Bladder calculus Elevated PSA Left ureteral calculus Lower urinary tract symptoms (LUTS) Male circumcision Surgical History H/O hernia repair History of appendectomy Family History Father Stroke Gout Hypertension Mother Cancer Sister Cancer Social History marital status: number of children: 4 household members: spouse Smoking Status: Never smoker alcohol intake: current Discharge Assessment & Plan Assessment and Plan Assessment: Cystoscopy/left ureteroscopic laser lithotripsy. 2. Cystoscopy/placement left ureteral stent (6 Portuguese by 22-32 cm multi-length). 3. Laser cystolitholapaxy. 4. Obstructing 5 mm left distal ureteral calculus, with intractable left renal colic 5. 9 mm bladder calculus 6. New onset atrial fibrillation Plan of Treatment: Discharge home Medications as prescribed Discharge Plan Discharge Plan Patient Disposition: Home Discharge orders & Medications Prescriptions: New metoprolol succinate 25 mg Tablet Extended Release 24 Hr 25 mg PO DAILY Qty: 30 0RF Eliquis 5 mg Tablet 5 mg PO BID Qty: 30 0RF Continued tamsulosin [Flomax] 0.4 mg capsule 0.4 mg PO BEDTIME Qty: 14 0RF oxycodone-acetaminophen [Percocet] 10-325 mg tablet 1 tab PO Q6H PRN (Reason: pain) Qty: 7 0RF Discontinued ibuprofen 200 mg Capsule 400 mg PO Q6H PRN (Reason: Pain (Scale Score 4-6)) 0RF tamsulosin 0.4 mg capsule 0.4 mg PO BEDTIME Qty: 90 3RF Follow up/Referrals: Vin Samson MD [Primary Care Provider] - Deanna Crawford MD [Physician] - (new Onset Atrial Fibrillation) Discharge Health Status Multidrug resistant organism: No MDRO Diet/Activity/Treatments Diet: Low-sodium Catheter: 2-way Espinoza Skin/Wound/Dressing Care Report to your healthcare provider any signs of infection, such as:: chills, fever and increased pain Visit Report/Discharge Packet Instructions: How to Care for Your Espinoza Catheter -- Male, Atrial Fibrillation, DI for Kidney Stones, DI for Cystoscopy, DI for Atrial Fibrillation, How to Prevent Falls, DI for Ureteral Stent Placement, DI for Laser Lithotripsy Discharge Data Primary Care Provider: Vin Samson Attending Provider: Amy Rodriguez
[2021-04-26 10:40] LABS: Ca oxalate dihydrate 20 % (.); Ca oxalate monohydr 80 % (.); Size 2x2 mm (.)
== END 2021-04-20 12:30 | disposition home or self-care (01) ==
LOC: OR 16:16 → AC 18:31
PROVIDERS: Nurse Practitioner Family; Admitting Provider Specialist; PCP Internal Medicine; Referring Provider Specialist; Visit Provider Specialist
PROC: (CPT 52356; principal; 2021-04-18 17:15)
DX: N20.1 Calculus of ureter (principal); N21.0 Calculus in bladder; N40.1 Benign prostatic hyperplasia with lower urinary tract symptoms; R97.20 Elevated prostate specific antigen [PSA]; I48.91 Unspecified atrial fibrillation; R39.9 Unspecified symptoms and signs involving the genitourinary system
CPT/HCPCS: 52356; 52317; 36415; 51798; 74018; 76000; 78452; 81002; 82365; 82962; 83735; 84439; 84443; 84484; 85610; 87635; 93005; 93010; 93017; 93306; 94762; 99215; C1771; G0378; A9502; J0690; J1170; J2405; J2704; J2785; J3010

== ENCOUNTER 2021-04-30 21:09 | Emergency (ER) | payer OTHER, SELFPAY ==
[2021-04-18 22:23] VITALS: BMI 20.4
[2021-04-30 21:15] VITALS: BP 108/59; PULSE 68; RESP 16; TEMP 36.6
--- NOTE | 2021-04-30 21:20 | DI.RAD.S_ITS ---
PROCEDURE: XR KUB INDICATIONS: recent ureteral stent, fever, chills TECHNIQUE: One view of the abdomen acquired. COMPARISON: [facility], CR, XR KUB, 04/17/2021, 14:36. [facility], CR, XR ABDOMEN 1V, 04/18/2021, 20:14. FINDINGS: Left double-J ureteral stent appears to be in appropriate position, with proximal coiled portion projecting over the left renal pelvis and distal Coral portion projecting over the urinary bladder. There is no for definite plain radiographic evidence of urinary tract calculus. Bowel gas pattern is normal. No gross osseous abnormality. IMPRESSION: No significant finding. Dictated by: Jefe Casillas M.D. on 04/30/2021 at 21:56 Approved by: Jefe Casillas M.D. on 04/30/2021 at 21:57
[2021-04-30 21:32] LABS: Appearance Urine UA SL CLOUDY; Bilirubin Urine UA NEGATIVE (NEGATIVE); Color Urine UA YELLOW; Glucose Urine UA NEGATIVE (Negative); Ketones Urine UA NEGATIVE (NEGATIVE); Leukocyte Esterase Urine UA TRACE (NEGATIVE); Nitrite Urine UA POSITIVE (Negative); Occult Blood Urine UA 3+ (Negative); Protein Urine UA 2+ (Negative); Specific Gravity Urine UA 1.015 (1.000-1.035); Urobilinogen Urine UA 0.2 E.U./dL (0.2); pH Urine UA 5.5 (4.5-8.0)
[2021-04-30 21:33] LABS: Bacteria Urine Few (2-10); Culture Indicated Urine Specimen Cultured; Mucus Urine 1+ (Negative); RBC Urine 30-100/HPF (0-5/HPF); Squamous Epithelial Cell Urine 0-1 /HPF (0-5/HPF); WBC Urine 1-5/HPF (0-5/HPF)
[2021-04-30 21:42] LABS: Add Manual Diff / Slide Review NO; Basophils Absolute Auto 0 /uL (0-100); Basophils Percent Auto 0.4 % (0-2); Eosinophils Absolute Auto 0 /uL (0-450); Hematocrit 40.9 % (41-53); Hemoglobin 13.8 g/dL (13.5-17.5); Lymphocytes Absolute Auto 600 /uL (1100-4500); Lymphocytes Percent Auto 4.5 % (25-40); Mean Corpuscular HGB Conc 33.8 % (30-36); Mean Corpuscular Hemoglobin 29.8 PG (26-34); Mean Corpuscular Volume 88.2 fL (80-100); Monocytes Absolute Auto 600 /uL (0-900); Neutrophils Absolute Auto 11400 /uL (1500-7000); Neutrophils Percent Auto 90.1 % (50-75); Platelet Count 247 X10^3/uL (150-400); Red Blood Cell Count 4.64 X10^6/uL (4.5-5.9); Red Cell Distribution Width 13.6 % (11.6-14.8); White Blood Cell Count 12.6 X10^3/uL (4.5-11.0)
--- NOTE | 2021-04-30 21:46 | PC.NURSE ---
Patient reports intermittent episodes of dizziness and warming feeling. Reports recent procedure for kidney stones on 04/18/21. States taking Tylenol makes it feel better.
[2021-04-30 21:50] LABS: Alanine Aminotransferase 36 IU/L (<50); Albumin Globulin Ratio 1.3 (1.0-2.8); Alkaline Phosphatase 49 U/L (38-126); Aspartate Aminotransferase 44 IU/L (17-59); BUN Creatinine Ratio 13.8 (6-22); Bilirubin Total 0.6 mg/dL (0.2-1.3); Blood Urea Nitrogen 16 mg/dL (9-20); Calcium 8.9 mg/dL (8.4-10.2); Carbon Dioxide 29 mmol/L (22-32); Chloride 100 mmol/L (98-107); Creatine Kinase 171 U/L (55-170); Estimated Glomerular Filt Rate > 60.0 mL/min (>60); Globulin 3.1 g/dL (1.7-4.1); Glucose 152 mg/dL (80-110); HEMOLYSIS < 15 (0-50); Potassium 3.4 mmol/L (3.4-5.1); Sodium 133 mmol/L (137-145); Total Protein 7.1 g/dL (6.3-8.2)
[2021-04-30] MEDS: LACTATED RINGERS 1,000 ML 200 ML IV (21:51)
[2021-04-30 22:01] VITALS: PULSE 67; RESP 16; O2SAT 100
[2021-04-30 22:02] VITALS: BP 113/55; PULSE 67; PULSE 69; RESP 16; RESP 18; TEMP 36.9; O2SAT 100; O2SAT 99
[2021-04-30 22:02] LABS: Troponin I < 0.012 ng/mL (0.01-0.034)
--- NOTE | 2021-04-30 22:03 | ED.FEVER ---
HPI - Fever General Chief Complaint: Fever Stated Complaint: shaky/chill/frequency/hematuria surg 04/18 Time Seen by Provider: 04/30/21 21:20 Source: patient Mode of arrival: Ambulatory History of Present Illness HPI Narrative: 76-year-old male nonsmoker with history of kidney stones, bladder stone and a recent left ureteral stent placement presents with his in the chief complaint of a few days episodes of rigors and urinary frequency. He had a stent placed by our urology group on Saturday for intractable pain from a 5 mm kidney stone. He denies any measurable fever though he does have a broken thermometer. He has had no nausea or vomiting. He is not dizzy nor weak or lightheaded. He denies any chest pain or shortness of breath. He denies any abdominal or flank pain. Related Data Previous Rx's Medication Instructions Recorded oxycodone-acetaminophen 10 mg-325 1 tab PO Q6H PRN #7 tab 04/16/21 mg tablet (Percocet) tamsulosin 0.4 mg capsule (Flomax) 0.4 mg PO BEDTIME #14 cap 04/16/21 apixaban 5 mg tablet (Eliquis) 5 mg PO BID #30 tab 04/20/21 metoprolol succinate 25 mg 25 mg PO DAILY #30 tab 04/20/21 tablet,extended release 24 hr cefuroxime axetil 500 mg tablet 500 mg PO BID #14 tab 04/30/21 Allergies Allergy/AdvReac Type Severity Reaction Status Date / Time No Known Drug Allergies Allergy Verified 04/18/21 15:40 Review of Systems Review of Systems Narrative: GENERAL: See HP HEENT: Denies sinus pain, ear pain, sore throat, difficulty swallowing, dizziness. RESPIRATORY: Denies dyspnea, cough, wheezing, hemoptysis, sputum. CARDIOVASCULAR: Denies chest pain, palpitations, orthopnea, edema, GASTROINTESTINAL: Denies nausea, vomiting, abdominal pain, diarrhea, constipation, melena. : See HPI MUSCULOSKELETAL: denies weakness, joint pain, or bony pain SKIN: Denies rash, skin lesions, or other NEUROLOGIC: Denies weakness, headache, numbness, change in speech, confusion, seizures, incoordination. PSYCHIATRIC: No concerning psychosocial issues. 12 point review of systems is negative except for those stated above Patient History Medical History Bladder calculus Elevated PSA Left ureteral calculus Lower urinary tract symptoms (LUTS) Male circumcision Surgical History H/O hernia repair History of appendectomy Family History Father Stroke Gout Hypertension Mother Cancer Sister Cancer Social History marital status: number of children: 4 household members: spouse Smoking Status: Never smoker alcohol intake: current Smoking Status: Never smoker alcohol intake frequency: a few times a week Substance Use Type: does not use Exam Narrative Exam Narrative: GENERAL: [76] year old patient appears stated age. Well-developed patient, in mild distress. HEAD: Atraumatic. Normocephalic. EYES: Pupils equal round and reactive. Extraocular motions intact. No scleral icterus. No injection or drainage. ENT: Nose without bleeding, purulent drainage. Throat without erythema, tonsillar hypertrophy or exudate. Airway patent. NECK: Trachea midline. Non tender CARDIOVASCULAR: Regular rate and rhythm without murmurs, gallops, or rubs. RESPIRATORY: Clear to auscultation. Breath sounds equal bilaterally. No wheezes, rales, or rhonchi. GASTROINTESTINAL: Abdomen soft, non-tender, nondistended. EXTREMITIES: No edema or joint tenderness. BACK: Nontender without deformity or crepitance. No flank tenderness. NEURO: AOx3. SKIN: No rash or erythema of visible areas Initial Vital Signs Initial Vital Signs: Vital Signs Temperature 97.8 F 04/30/21 21:15 Pulse Rate 68 04/30/21 21:15 Respiratory Rate 16 04/30/21 21:15 Blood Pressure 108/59 L 04/30/21 21:15 Course Course Course Narrative: Patient has reassuring physical exam, history and labs. Imaging would suggest a stent is not shifted. Urine is suggestive of infection. Labs and vitals are reassuring there is no evidence of sepsis or renal failure. Antibiotics given here in the department and remainder prescription sent to his pharmacy. He is given return precautions and questions been answered to his apparent satisfaction Orders Ordered: ED Orders 04/30/21 21:20 XR KUB Stat 04/30/21 21:26 Urinalysis and Microscopic Stat Urine Culture Stat 04/30/21 21:30 Complete Blood Count AUTO DIFF Stat Comprehensive Metabolic Panel Stat Lactate (Lactic Acid) Stat Procalcitonin Stat Troponin & CK Cardiac Panel Stat 04/30/21 21:51 Blood Culture Stat 04/30/21 22:05 COVID19 -Nasal swab/Pre-Proc Stat Discontinued Medications Lactated Ringer's (Lactated Ringers) 1,000 mls @ 200 mls/hr IV CONT DOMENICA Last Infusion: 04/30/21 23:21 Dose: 0 mls/hr Documented by: [email or web address] Infusion: 04/30/21 22:36 Dose: 0 mls/hr Documented by: [email or web address] Admin: 04/30/21 21:51 Dose: 200 mls/hr Documented by: [email or web address] Ceftriaxone Sodium 1,000 mg/ (Sodium Chloride) 100 mls @ 200 mls/hr IV NOW ONE Stop: 04/30/21 22:25 Last Infusion: 04/30/21 23:21 Dose: 0 mls/hr Documented by: [email or web address] Admin: 04/30/21 22:38 Dose: 200 mls/hr Documented by: [email or web address] Consultations Consultation #1: Discussion with on-call urology at the [facility]. Recommend and agree with the plan for antibiotics, discharge and close follow-up Vital Signs Vital signs: Vital Signs - 8 hr 04/30/21 21:15 04/30/21 22:01 04/30/21 22:02 Temperature 97.8 F 98.4 F Pulse Rate 68 67 69 Respiratory Rate 16 16 18 Blood Pressure 108/59 L 113/55 L Pulse Oximetry 100 99 04/30/21 22:30 04/30/21 23:22 Temperature Pulse Rate 68 68 Respiratory Rate 20 Blood Pressure 124/62 Pulse Oximetry 99 100 MDM - Fever Lab Data Result diagrams: 04/30/21 21:30 04/30/21 21:30 Labs: Lab Results 04/30/21 04/30/21 04/30/21 Range/Units 21:26 21:30 21:30 WBC 12.6 H (4.5-11.0) X10^3/uL RBC 4.64 (4.5-5.9) X10^6/uL Hgb 13.8 (13.5-17.5) g/dL Hct 40.9 L (41-53) % MCV 88.2 (80-100) fL MCH 29.8 (26-34) PG MCHC 33.8 (30-36) % RDW 13.6 (11.6-14.8) % Plt Count 247 (150-400) X10^3/uL Neut % (Auto) 90.1 H (50-75) % Lymph % (Auto) 4.5 L (25-40) % [place] % (Auto) 5.0 (3-14) % Eos % (Auto) 0.0 L (2-4) % Baso % (Auto) 0.4 (0-2) % Neut # (Auto) 99436 H (0613-1769) /uL Lymph # (Auto) 600 L (0332-3975) /uL [place] # (Auto) 600 (0-900) /uL Eos # (Auto) 0 (0-450) /uL Baso # (Auto) 0 (0-100) /uL Sodium 133 L (137-145) mmol/L Potassium 3.4 (3.4-5.1) mmol/L Chloride 100 (98-107) mmol/L Carbon Dioxide 29 (22-32) mmol/L BUN 16 (9-20) mg/dL Creatinine 1.16 (0.66-1.25) mg/dL Estimated GFR > 60.0 (>60) mL/min BUN/Creatinine Ratio 13.8 (6-22) Glucose 152 H (80-110) mg/dL Lactate (0.7-2.1) mmol/L Calcium 8.9 (8.4-10.2) mg/dL Total Bilirubin 0.6 (0.2-1.3) mg/dL AST 44 (17-59) IU/L ALT 36 (<50) IU/L Alkaline Phosphatase 49 (38-126) U/L Total Creatine Kinase 171 H (55-170) U/L CK-MB (CK-2) 1.08 (<2.37) ng/mL CK-MB (CK-2) Rel Index 0.6 L (1.5-5.0) % Troponin I < 0.012 (0.01-0.034) ng/mL Total Protein 7.1 (6.3-8.2) g/dL Albumin 4.0 (3.5-5.0) g/dL Globulin 3.1 (1.7-4.1) g/dL Albumin/Globulin Ratio 1.3 (1.0-2.8) Procalcitonin 0.36 (<0.5) ng/mL Urine Color Yellow Urine Appearance Sl cloudy Urine pH 5.5 (4.5-8.0) Ur Specific [place] 1.015 (1.000-1.035) Urine Protein 2+ H (Negative) Urine Glucose (UA) Negative (Negative) g/dL Urine Ketones Negative (NEGATIVE) Urine Occult Blood 3+ H (Negative) Urine Nitrate Positive H (Negative) Urine Bilirubin Negative (NEGATIVE) Urine Urobilinogen 0.2 (0.2) E.U./dL Ur Leukocyte Esterase Trace H (NEGATIVE) Urine RBC 30-100/hpf H (0-5/HPF) Urine WBC 1-5/hpf (0-5/HPF) Ur Squamous Epith Cells 0-1 /hpf (0-5/HPF) Urine Bacteria Few (2-10) H (None) Urine Mucus 1+ H (Negative) Ur Culture Indicated? Specimen cultured SARS-CoV-2 (PCR) (Negative) 04/30/21 04/30/21 Range/Units 21:30 22:05 WBC (4.5-11.0) X10^3/uL RBC (4.5-5.9) X10^6/uL Hgb (13.5-17.5) g/dL Hct (41-53) % MCV (80-100) fL MCH (26-34) PG MCHC (30-36) % RDW (11.6-14.8) % Plt Count (150-400) X10^3/uL Neut % (Auto) (50-75) % Lymph % (Auto) (25-40) % [place] % (Auto) (3-14) % Eos % (Auto) (2-4) % Baso % (Auto) (0-2) % Neut # (Auto) (3627-7269) /uL Lymph # (Auto) (8357-9754) /uL [place] # (Auto) (0-900) /uL Eos # (Auto) (0-450) /uL Baso # (Auto) (0-100) /uL Sodium (137-145) mmol/L Potassium (3.4-5.1) mmol/L Chloride (98-107) mmol/L Carbon Dioxide (22-32) mmol/L BUN (9-20) mg/dL Creatinine (0.66-1.25) mg/dL Estimated GFR (>60) mL/min BUN/Creatinine Ratio (6-22) Glucose (80-110) mg/dL Lactate 1.0 (0.7-2.1) mmol/L Calcium (8.4-10.2) mg/dL Total Bilirubin (0.2-1.3) mg/dL AST (17-59) IU/L ALT (<50) IU/L Alkaline Phosphatase (38-126) U/L Total Creatine Kinase (55-170) U/L CK-MB (CK-2) (<2.37) ng/mL CK-MB (CK-2) Rel Index (1.5-5.0) % Troponin I (0.01-0.034) ng/mL Total Protein (6.3-8.2) g/dL Albumin (3.5-5.0) g/dL Globulin (1.7-4.1) g/dL Albumin/Globulin Ratio (1.0-2.8) Procalcitonin (<0.5) ng/mL Urine Color Urine Appearance Urine pH (4.5-8.0) Ur Specific [place] (1.000-1.035) Urine Protein (Negative) Urine Glucose (UA) (Negative) g/dL Urine Ketones (NEGATIVE) Urine Occult Blood (Negative) Urine Nitrate (Negative) Urine Bilirubin (NEGATIVE) Urine Urobilinogen (0.2) E.U./dL Ur Leukocyte Esterase (NEGATIVE) Urine RBC (0-5/HPF) Urine WBC (0-5/HPF) Ur Squamous Epith Cells (0-5/HPF) Urine Bacteria (None) Urine Mucus (Negative) Ur Culture Indicated? SARS-CoV-2 (PCR) Negative (Negative) Urine Dip Bedside Urine Glucose Negative Bedside Urine Bilirubin - Negative Urine Specific [place] 1.020 Bedside Urine Occult Blood +++ Bedside Urine pH 6.0 Bedside Urine Protein + 30 Bedside Urine Urobilinogen - Negative Bedside Urine Nitrite - Negative Bedside Urine Leukocytes + 70 Esterase Imaging Data Abdominal x-ray: Radiologist's Impression: [place] [id number] XRay Report Signed Patient: Antonio Lizama MR#: [id number] : 1945 Acct:[id number] Age/Sex: 76 / M Date of Service: 04/30/21 Loc: ED Accession Number: [id number] ?? Procedure: XR KUB Ordering Provider: Donald Licona D.O. PROCEDURE:? XR KUB ? INDICATIONS:? recent ureteral stent, fever, chills ? TECHNIQUE:? One view of the abdomen acquired.? ? COMPARISON:? [facility], CR, XR KUB, 04/17/2021, 14:36.? [facility], CR, XR ABDOMEN 1V, 04/18/2021, 20:14. ? FINDINGS:? ? Left double-J ureteral stent appears to be in appropriate position, with proximal coiled portion projecting over the left renal pelvis and distal Coral portion projecting over the urinary bladder.? There is no for definite plain radiographic evidence of urinary tract calculus.? Bowel gas pattern is normal.? No gross osseous abnormality. ? IMPRESSION:? No significant finding. ? ? Dictated by: Jefe Casillas M.D. on 04/30/2021 at 21:56 ? ? Approved by: Jefe Casillas M.D. on 04/30/2021 at 21:57 ? Discharge Plan Departure Patient Disposition: Home Clinical Impression: Acute UTI Instructions: DI for Urinary Tract Infection (UTI) Activity Restrictions/Additional Instructions: *You have been diagnosed with [ UTI] *What to do: *Please continue to take your regular medications as directed. [x ] New medication prescriptions sent to your pharmacy: [[facility] ] [ ] New medication written as a paper prescription [ ] No new medications given *Please follow up with your primary care provider in 2-3 days, call for an appointment. Let them know you were seen in the Emergency Department and that we ask that you be seen in follow up. We will electronically transmit a record of today's note if your PCP is in our system *If you do not have a primary care provider please contact the [facility] Resource line at [phone]. They will ask some questions about your medical history and help get you set up with a doctor in the community. *Return to Emergency Department if you should have any new, worsening or concerning symptoms, such as [fever greater than 101 F, shaking chills, worsening pain, persistent vomiting or other bothersome symptoms] Prescriptions: New cefuroxime axetil 500 mg tablet 500 mg PO BID Qty: 14 0RF No Action metoprolol succinate 25 mg Tablet Extended Release 24 Hr 25 mg PO DAILY Qty: 30 0RF Eliquis 5 mg Tablet 5 mg PO BID Qty: 30 0RF tamsulosin [Flomax] 0.4 mg capsule 0.4 mg PO BEDTIME Qty: 14 0RF oxycodone-acetaminophen [Percocet] 10-325 mg tablet 1 tab PO Q6H PRN (Reason: pain) Qty: 7 0RF Referrals: Amy Rodriguez MD [Physician] - Vin Samson MD [Primary Care Provider] -
[2021-04-30 22:06] LABS: CKMB % Relative Index 0.6 % (1.5-5.0); Creatine Kinase MB 1.08 ng/mL (<2.37)
[2021-04-30 22:07] LABS: Procalcitonin 0.36 ng/mL (<0.5)
[2021-04-30 22:26] LABS: COVID19 -Nasal RAPID Negative (Negative)
[2021-04-30 22:30] VITALS: PULSE 68; RESP 20; O2SAT 99
[2021-04-30] MEDS: cefTRIAXone 1,000 MG in SODIUM CHLORIDE 0.9% 100 ML 200 ML IV (22:38)
[2021-04-30 23:22] VITALS: BP 124/62; PULSE 68; O2SAT 100
== END 2021-04-30 23:24 | disposition home or self-care (01) ==
PROVIDERS: Emergency Provider Emergency Medicine; PCP Internal Medicine; Referring Provider Specialist
DX: N39.0 Urinary tract infection, site not specified (principal); Z20.822 Contact with and (suspected) exposure to COVID-19
CPT/HCPCS: 36415; 74018; 80053; 81001; 81003; 82550; 82553; 83605; 84145; 84484; 85025; 87040; 87077; 87086; 87147; 87186; 87635; 96361; 96365; 99284; C9803; J0696

== ENCOUNTER → 2021-05-09 14:10 | Outpatient (CLI) | payer OTHER, SELFPAY ==
[2021-05-02 11:05] VITALS: BMI 20.4
--- NOTE | 2021-05-09 14:12 | DI.RAD.S_ITS ---
PROCEDURE: XR KUB INDICATIONS: Kidney stone TECHNIQUE: One view of the abdomen acquired. COMPARISON: [facility], CR, XR KUB, 04/30/2021, 21:29. FINDINGS: Surgical changes and devices: A left nephroureteral stent appears well positioned. Bowel: Increased stool is consistent with constipation. Soft tissues: No suspicious abdominal calcifications. Visualized solid organ contours appear normal in size. Multiple pelvic phleboliths are seen. Bones: No suspicious bony lesions. IMPRESSION: Left nephroureteral stent appears well positioned. Dictated by: Julien Rodriguez M.D. on 05/09/2021 at 15:40 Approved by: Julien Rodriguez M.D. on 05/09/2021 at 15:42
== END ==
PROVIDERS: PCP Internal Medicine; Referring Provider Specialist; Visit Provider Specialist
DX: N20.1 Calculus of ureter (principal); Z96.0 Presence of urogenital implants
CPT/HCPCS: 74018

== ENCOUNTER → 2021-06-27 11:26 | Outpatient (CLI) | payer OTHER, SELFPAY ==
[2021-05-11 08:59] VITALS: BMI 20.4
--- NOTE | 2021-06-27 11:31 | DI.RAD.S_ITS ---
PROCEDURE: XR KUB INDICATIONS: bladder calculus TECHNIQUE: One view of the abdomen acquired. COMPARISON: [facility], , XR KUB, 05/09/2021, 14:05. FINDINGS: Surgical changes and devices: None. Bowel: Bowel gas pattern is normal. Soft tissues: No suspicious abdominal calcifications. Visualized solid organ contours appear normal in size. Bones: No suspicious bony lesions. IMPRESSION: Negative examination Dictated by: Florentino Brothers M.D. on 06/27/2021 at 13:12 Approved by: Florentino Brothers M.D. on 06/27/2021 at 13:13
[2021-06-27 14:14] LABS: Calcium 9.7 mg/dL (8.4-10.2); Uric Acid 5.8 mg/dL (3.5-8.5)
[2021-06-27 14:46] LABS: Prostate Specific Antigen 5.34 ng/mL (0.10-4.00)
[2021-06-28 07:53] LABS: Parathyroid Hormone Int 48 pg/mL (15-65)
== END ==
PROVIDERS: PCP Internal Medicine; Referring Provider Specialist; Visit Provider Specialist
DX: R97.20 Elevated prostate specific antigen [PSA] (principal); N21.0 Calculus in bladder; N20.1 Calculus of ureter
CPT/HCPCS: 36415; 74018; 82310; 83970; 84153; 84550

== ENCOUNTER → 2021-08-29 10:18 | Outpatient (CLI) | payer OTHER, SELFPAY ==
[2021-05-11 08:59] VITALS: BMI 20.4
[2021-08-29 12:24] LABS: Prostate Specific Antigen 5.41 ng/mL (0.10-4.00)
== END ==
PROVIDERS: PCP Internal Medicine; Referring Provider Specialist; Visit Provider Specialist
DX: R97.20 Elevated prostate specific antigen [PSA] (principal)
CPT/HCPCS: 36415; 84153

== ENCOUNTER → 2021-09-28 11:17 | Outpatient (CLI) | payer OTHER, SELFPAY ==
[2021-08-31 13:41] VITALS: BMI 20.4
[2021-09-28 11:52] LABS: Add Manual Diff / Slide Review NO; Basophils Absolute Auto 0 /uL (0-100); Basophils Percent Auto 0.3 % (0-2); Eosinophils Absolute Auto 0 /uL (0-450); Eosinophils Percent Auto 0.7 % (2-4); Hematocrit 43.1 % (41-53); Hemoglobin 14.2 g/dL (13.5-17.5); Lymphocytes Absolute Auto 800 /uL (1100-4500); Mean Corpuscular Hemoglobin 29.6 PG (26-34); Mean Corpuscular Volume 89.7 fL (80-100); Monocytes Absolute Auto 500 /uL (0-900); Neutrophils Absolute Auto 4000 /uL (1500-7000); Platelet Count 185 X10^3/uL (150-400); Red Blood Cell Count 4.81 X10^6/uL (4.5-5.9); Red Cell Distribution Width 13.9 % (11.6-14.8); White Blood Cell Count 5.5 X10^3/uL (4.5-11.0)
[2021-09-28 12:33] LABS: BUN Creatinine Ratio 23.3 (6-22); Blood Urea Nitrogen 28 mg/dL (9-20); Carbon Dioxide 29 mmol/L (22-32); Chloride 103 mmol/L (98-107); Cholesterol 189 mg/dL (140-199); Estimated Glomerular Filt Rate > 60 mL/min (>60); Glucose 90 mg/dL (80-110); HDL Cholesterol 71 mg/dL (40-60); HEMOLYSIS < 15 (0-50); LDL Cholesterol Calculated 106 mg/dL (<100); Potassium 4.5 mmol/L (3.4-5.1); Sodium 139 mmol/L (137-145); Triglycerides 59 mg/dL (35-150)
== END ==
PROVIDERS: PCP Internal Medicine; Referring Provider Internal Medicine Cardiovascular Disease; Visit Provider Internal Medicine Cardiovascular Disease
DX: I10 Essential (primary) hypertension (principal); Z79.01 Long term (current) use of anticoagulants
CPT/HCPCS: 36415; 80048; 80061; 85025

== ENCOUNTER → 2021-11-08 09:18 | Outpatient (CLI) | payer MEDICARE, SELFPAY ==
[2021-08-31 13:41] VITALS: BMI 20.4
[2021-11-08 12:15] LABS: COVID19 -Nasal RAPID Negative (Negative)
== END ==
PROVIDERS: PCP Internal Medicine; Visit Provider Surgery
DX: Z01.812 Encounter for preprocedural laboratory examination (principal); Z20.822 Contact with and (suspected) exposure to COVID-19
CPT/HCPCS: 87635; C9803

== ENCOUNTER 2021-11-09 12:59 | Day surgery (SDC) | payer MEDICARE, SELFPAY ==
[2021-08-31 13:41] VITALS: BMI 20.4
[2021-11-09 13:26] VITALS: BP 159/83; PULSE 60; RESP 18; TEMP 36.3; O2SAT 100; BMI 21.2
[2021-11-09] MEDS: LACTATED RINGERS 1,000 ML 42 ML IV (13:53)
--- NOTE | 2021-11-09 14:56 | PM.HP.1 ---
History of Present Illness History of Present Illness Date Patient Seen: 11/09/21 Time Patient Seen: 14:56 Chief complaint: SCREENING COLONOSCOPY Narrative: Xander is a 76-year-old man who is due for colonoscopy. His last was 10 years ago and was normal. He is no family history of colon cancer. Is recently diagnosed with atrial fibrillation and takes Eliquis which he has held for the last 2 days. Patient History Medical History (Updated 11/09/21 @ 14:57 by Ted So MD) Bladder calculus BPH w urinary obs/LUTS Chicken pox Chronic anticoagulation Chronic atrial fibrillation Elevated PSA (~1999) Erectile dysfunction Essential hypertension History of nephrolithiasis (~1993) Left ureteral calculus Male circumcision Measles Mixed hyperlipidemia Mumps Paroxysmal atrial fibrillation (~2021) Plantar warts (~1984) Primary osteoarthritis involving multiple joints Renal calculus, right Skin cancer (~2020) TIA (transient ischemic attack) (~2017) Surgical History Anesthesia H/O hernia repair (~2000) History of appendectomy (~1957) History of lithotripsy Skin cancer (~2021) Family & Social History Family History (Updated 11/06/21 @ 22:43 by Francine Simon) Father Stroke Gout Hypertension Cancer Hyperlipidemia Myasthenia gravis Mother Cancer Sister Cancer Grandfather Cancer Grandmother Cancer Grandfather History of heart disease Grandmother Hypertension Social History: household members spouse Tobacco & Substance use: Smoking Status Never smoker alcohol intake current alcohol intake frequency a few times a week Substance Use Type does not use Meds Home Medications and Allergies Home Medications Medication Instructions Recorded Confirmed Type tamsulosin 0.4 mg capsule (Flomax) 0.4 mg PO BEDTIME #14 caps 04/16/21 11/09/21 Rx apixaban 5 mg tablet (Eliquis) 5 mg PO BID #30 tabs 04/20/21 11/09/21 Rx metoprolol succinate 25 mg 25 mg PO DAILY #30 tabs 04/20/21 11/09/21 Rx tablet,extended release 24 hr potassium citrate 5 mEq (540 mg) 5 meq PO TID #270 tabs 07/04/21 11/09/21 Rx tablet,extended release sildenafil 50 mg tablet 50 mg PO DAILY PRN sexual activity 07/06/21 11/09/21 Rx #30 tabs flecainide 100 mg tablet 100 mg PO DAILY 10/11/21 11/09/21 History rosuvastatin 10 mg tablet 10 mg PO DAILY #90 tabs 10/11/21 11/09/21 Rx triamcinolone acetonide 0.1 % 1 applic topical DAILY 10/11/21 11/09/21 History topical cream sodium sul 1.479 gram-potas ch See Rx Instructions PO PER PKG DIR 10/27/21 11/09/21 Rx 0.188 gram-magnes sul 0.225 gram #24 tabs tablet (Sutab) Allergies Allergy/AdvReac Type Severity Reaction Status Date / Time No Known Drug Allergies Allergy Verified 11/09/21 13:21 Exam Vital Signs (past 8 hours): - 11/09/21 13:26 Temperature 97.3 F L Pulse Rate 60 Respiratory Rate 18 Blood Pressure 159/83 H Pulse Oximetry 100 Oxygen Delivery Method Room Air Oxygen Delivery Method Room Air Const General: healthy appearing Resp Effort & Inspection: normal respiratory effort Assessment & Plan Assessment and plan (1) Colon cancer screening: Status: Acute Plan We reviewed the risks and benefits of colonoscopy and he would like to proceed. Time Spent With Patient Critical Care time: I spent a total of [] minutes of critical care time on this patient's care today; this time is exclusive of procedural time.
[2021-11-09] MEDS: fentaNYL 250 MCG/5 ML INJ 125 MCG IV (15:04)
[2021-11-09] MEDS: MIDAZOLAM 5 MG/5 ML VIAL IV (15:04)
--- NOTE | 2021-11-09 15:23 | PM.OP.COLON ---
Operative Date/Time/Diagnoses Date of procedure: 11/09/21 Time of procedure: 15:23 Pre-op diagnosis: Colon cancer screening Post-op diagnosis: same Procedure & Clinicians Study performed: Colonoscopy Same procedure as scheduled: Yes Surgeon: Ted So Procedure Notes Procedure in detail: Surgeon: Ted So MD Procedure: The patient was brought to the endoscopy suite, placed in left lateral decubitus position. The patient was connected to monitoring devices. A time-out was performed. Sedation was administered. Once the patient was adequately sedated, a digital rectal exam was performed and was normal. The scope was then inserted and advanced to the cecum where the appendiceal orifice was identified and photographed. The scope was then slowly withdrawn over greater than 6 minutes. The mucosa was thoroughly inspected. No polyps were noted. The scope was retroflexed in the rectum. There were no abnormalities noted. The scope was straightened and removed. The patient was awakened and brought to recovery. Versed: 5 mg Fentanyl: 125 mcg EBL: 0 Findings: Normal colon Scope withdrawal time: 6 Sedation minutes: 17 Post-procedure Recommendations: Colonoscopy in 10 years Disposition: PACU
[2021-11-09 15:30] VITALS: BP 137/74; PULSE 60; RESP 14; TEMP 36.6; O2SAT 99
[2021-11-09 15:35] VITALS: BP 133/70; PULSE 55; RESP 14; O2SAT 98
[2021-11-09 15:40] VITALS: BP 144/78; PULSE 59; RESP 16; O2SAT 98
[2021-11-09 15:45] VITALS: BP 141/76; PULSE 55; RESP 16; O2SAT 98
[2021-11-09 15:55] VITALS: BP 138/70; PULSE 56; RESP 15; O2SAT 97
== END 2021-11-09 15:59 | disposition home or self-care (01) ==
PROVIDERS: PCP Internal Medicine; Referring Provider Surgery; Visit Provider Surgery
PROC: 0DJD8ZZ Inspection of Lower Intestinal Tract, Via Natural or Artificial Opening Endoscopic (ICD-10-PCS; CPT 45378; principal; 2021-11-09 14:45)
DX: Z12.11 Encounter for screening for malignant neoplasm of colon (principal)
CPT/HCPCS: G0121; 99152; J2250; J3010

== ENCOUNTER → 2022-03-23 14:34 | Outpatient (CLI) | payer MEDICARE, SELFPAY ==
[2021-08-31 13:41] VITALS: BMI 20.4
[2022-03-23 16:21] LABS: BUN Creatinine Ratio 20.3 (6-22); Blood Urea Nitrogen 28 mg/dL (9-20); Calcium 9.3 mg/dL (8.4-10.2); Carbon Dioxide 28 mmol/L (22-32); Chloride 102 mmol/L (98-107); Estimated Glomerular Filt Rate 53 mL/min (>60); Glucose 105 mg/dL (80-110); HEMOLYSIS 17 (0-50); Potassium 4.3 mmol/L (3.4-5.1); Sodium 140 mmol/L (137-145)
[2022-03-23 16:53] LABS: Prostate Specific Antigen 6.04 ng/mL (0.10-4.00)
== END ==
PROVIDERS: PCP Internal Medicine; Referring Provider Specialist; Visit Provider Specialist
DX: R97.20 Elevated prostate specific antigen [PSA] (principal); R31.9 Hematuria, unspecified
CPT/HCPCS: 36415; 80048; 84153

== ENCOUNTER → 2022-03-26 14:10 | Outpatient (CLI) | payer MEDICARE, SELFPAY ==
[2021-08-31 13:41] VITALS: BMI 20.4
--- NOTE | 2022-03-26 14:12 | DI.CT.S_ITS ---
PROCEDURE: CT IVP A/P W/WO INDICATIONS: hematuria TECHNIQUE: Optional 5 mm thick noncontrast images acquired from the diaphragm to the symphysis pubis. After the administration of intravenous contrast, 5 mm thick images acquired from the diaphragm to the symphysis pubis after a 10-minute delay. 2 mm thick coronal and sagittal reformats were then performed of the kidneys and ureters. For radiation dose reduction, the following was used: automated exposure control, adjustment of mA and/or kV according to patient size. COMPARISON: None. FINDINGS: Image quality: Excellent. Lung bases: Lung bases are clear. Heart size is normal. Urinary system: Both kidneys are normal in size, without hydronephrosis or nephrolithiasis on pre-contrast images. No perinephric fat stranding. There is normal bilateral renal enhancement. Low-density cysts are present within the left renal cortex. Renal calyces appear normal in morphology when filled with contrast. Opacified portions of both ureters demonstrate normal caliber. Multiple subcentimeter exophytic lesions are noted within the bladder which demonstrate subtle contrast enhancement. Other solid organs: Liver is normal in size and enhancement. Gallbladder is unremarkable . Biliary system is non dilated. Pancreas enhances normally. Spleen is normal in size and enhancement. No adrenal nodules. Peritoneum and bowel: Bowel loops demonstrate normal wall thickness and caliber. No free fluid or air. Nodes and vessels: No retroperitoneal or mesenteric adenopathy by size criteria. Aorta and inferior vena cava are normal in size. Abdominal wall: No ventral hernias. Pelvis: No pathologic free pelvic fluid. No inguinal hernias or adenopathy. Bones: No suspicious bony lesions. No vertebral body compression fractures. IMPRESSION: 1. No hydronephrosis, nephrolithiasis, hydroureter, or ureterolithiasis. 2. Multiple subcentimeter exophytic lesions within the bladder suspicious for neoplasm. Direct visualization recommended. 3. No suspicious renal enhancement or filling defects within the bilateral renal collecting systems. Dictated by: Debo Sinha M.D. on 03/26/2022 at 16:26 Approved by: Debo Sinha M.D. on 03/26/2022 at 16:30
== END ==
PROVIDERS: PCP Internal Medicine; Referring Provider Specialist; Visit Provider Specialist
DX: R31.9 Hematuria, unspecified (principal); N32.9 Bladder disorder, unspecified
CPT/HCPCS: 74178; Q9967

== ENCOUNTER → 2022-04-27 09:40 | Outpatient (CLI) | payer MEDICARE, SELFPAY ==
[2021-08-31 13:41] VITALS: BMI 20.4
[2022-04-27 11:33] LABS: COVID19 -Nasal RAPID Negative (Negative)
== END ==
PROVIDERS: PCP Internal Medicine; Visit Provider Specialist
DX: Z20.822 Contact with and (suspected) exposure to COVID-19 (principal)
CPT/HCPCS: 87635; C9803

== ENCOUNTER 2022-05-01 11:10 | Observation (INO) | payer MEDICARE, SELFPAY ==
[2021-08-31 13:41] VITALS: BMI 20.4
[2022-04-24 15:08] VITALS: BMI 21.2
[2022-04-30] VITALS (18 sets, daily range): BP systolic 95–168; BP diastolic 51–89; PULSE 46–70; RESP 13–19; TEMP 35.9–38; O2SAT 93–100; BMI 21.3
--- NOTE | 2022-04-30 | PATH_ITS ---
[facility] Accession Number: [id number] No. of containers..02 Tissue . 01 Material submitted: . PART A: prostate - PROSTATE MEDIAL LOBE W/ATTACHED BLADDER TUMOR PART B: bladder - VAROUS BLADDER NEOPLASMS . 01 Diagnosis: A. Prostate, Medial Lobe, TURP: Papillary urothelial carcinoma, low grade, noninvasive. . B. Bladder Tumors, TURBT: Papillary urothelial carcinoma, low grade, noninvasive. No mucularis propria identified. MRV 05/03/2022 1510 Local . 01 Electronically signed: . Mj Chin MD, PhD, Pathologist NPI- [id number] . 01 Gross description: . A. Received in formalin labeled with the patient's name, , and prostate median lobe with bladder tumor, and consists of multiple fragments of firm to papillary soft tissue aggregating to 4.2 x 2.0 x 0.3 cm. The specimen is filtered into a biopsy bag and submitted entirely in cassettes A1-A3. B. Received in formalin, labeled with the patient's name, , and various bladder neoplasms, and consists of multiple melgoza, spongy soft tissue fragments admixed with hemorrhagic material aggregating to 3.8 x 2.7 x 0.3 cm. The specimen is filtered into a biopsy bag and submitted entirely in cassettes B1-B2. ([id number]) /FRR 05/02/2022 0256 Local . 01 Pathologist provided ICD-10: C67.9 . 01 CPT . 209599, [id number] Specimen Comment: A courtesy copy of this report has been sent to [phone] Performed at: 01 [facility] [address] [place] [address] Suite [facility], [place], [place] [id number] MD Bobby Tatum MD Phone: [phone]
[2022-04-30] MEDS: LACTATED RINGERS 1,000 ML 21 ML IV (07:31)
--- NOTE | 2022-04-30 07:31 | PM.PREOP ---
Pre-operative Note COVID-19 Criteria for continued procedure: Expected advancement of disease process, Possibility delay results in more complex future surgery or treatment, Deterioration of the patient's condition or overall health, Delay expected to result in less-positive ultimate med/surg outcome and Non-surgical alternatives not available or appropriate per current SOC Interval Note History & Physical reviewed/Exam performed by Physician: Yes Changes to H&P: No
[2022-04-30] MEDS: ACETAMINOPHEN IV 1,000 MG/100 ML VIAL 400 MG IV (07:45)
[2022-04-30] MEDS: CEFAZOLIN 2 GM/100 ML PREMIX 100 ML IV (07:50)
[2022-04-30] MEDS: TRANEXAMIC ACID 1,000 MG in SODIUM CHLORIDE 0.9% 100 ML 200 MG IV (08:01)
--- NOTE | 2022-04-30 08:11 | SUR.OPER ---
Lithotomy on padded OR bed, head on pillow, arms secured on padded arm boards at <90 degrees abduction. Legs secured in padded yellow fins stirrups.
[2022-04-30] MEDS: SODIUM CHLORIDE IRRIG SOLUTION 3,000 ML 3000 ML IRR (09:26)
[2022-04-30] MEDS: WATER FOR INJECTION,STERILE 20 ML, mitoMYcin 20 MG INTRAVESIC (09:40)
--- NOTE | 2022-04-30 09:58 | P.OP_ITS ---
Operative Date/Time/Diagnoses Date of procedure: 04/30/22 Time of procedure: 09:45 Pre-op diagnosis: 1. Multifocal bladder cancer 2. Protruding and obstructing intravesical median lobe (with several bladder neoplasms on surface) Procedure & Clinicians Procedure: 1. Cystoscopy/Transurethral resection of prostate (limited to median lobe intravesical protrusion). 2. Cystoscopy/Transurethral resection of multiple bladder neoplasms (> 5 cm). 3. Cystoscopy/installation mitomycin-C (20 mg). Same procedure as scheduled: Yes Indications: 1. Multifocal neoplasms of bladder and protruding intravesical median lobe of prostate. 2. Bladder outlet obstruction. Surgeon: Amy Rodriguez Click Yes if Unassisted: Yes Anesthesia Type: General Operative Notes Findings: 1. Urethra-normal caliber without annular stricture or lesion. 2. External sphincter coapted with normal overlying urothelium. 3. Prostate-5+ cm length with obstructing trilobar hyperplasia associated prominent mucosal vascularity. The intravesical median lobe add forward individual neoplasms on his urothelial surface. 4. Bladder-1+ trabeculation. Normal ureteral orifices bilaterally. There are multifocal papillary neoplasm located on surface of intra vesicle protruding median lobe of prostate, left bladder neck, left floor, left ureteric ridge, left lateral wall, posterior wall, and dome. Approximately 20 individual neoplasms were resected. Closure Type: not applicable Specimen(s): other (1. Prostate chips with neoplasm included. 2. Bladder neoplasms. ) Applied: catheter (Twenty-four [address] hematuria catheter.) Estimated Blood Loss (mL): 5 Blood products transfused: none Procedure in detail: Patient was positioned supine was administered general anesthesia. He was then repositioned semi-lithotomy the lower abdomen, genitalia, and groin were then prepped and draped in sterile fashion. The resectoscope was then advanced to lower urinary tract with the findings as described above. The working element was fitted with a thick resecting loop. The protruding and obstructing intravesical median lobe was then resected to a point of contour with the remaining on resected median bar. These specimens were collected in aggregate and submitted as specimen #1 for routine gross and microscopic examination. Hemostasis was attained with electrocautery. Next, now with improved visibility and access to the trigone, left bladder neck and left lateral wall tumors stepwise, sequential and meticulous resection each, individual tumor was undertaken. The thin loop was utilized in this instance. Energy settings were decreased from 180-140 for this portion. The tumors were resected with their base having evidence of muscular fibers. In some cases the muscular fibers were quite thin and 1 could see some evidence of fat beyond the depth of the intact fibers. Hemostasis was attained with electrocautery. All tumor specimen were collected and submitted in aggregate to pathology for routine gross and microscopic examination as specimen#2. The bladder was left partially filled in the resectoscope was removed. A [address] hematuria catheter was then passed into the bladder over a catheter guide. The balloon was inflated to 10 cc. Bladder contents were drained. A catheter plug was placed in the 3 way Espinoza inflow. A 20 cc solution containing 20 mg mitomycin-C were then instilled in the bladder and a catheter plug was also placed in the 3 way Espinoza catheter outflow for anticipated 2 hour postoperative retention chemotherapy agent. The patient was then repositioned in supine, was awakened, and was transferred to [facility] for transport to PACU in stable condition. Complications: none Post-operative Condition: stable Disposition: PACU Plan for aftercare: Admit to acute care as outpatient with bed.
[2022-04-30] MEDS: fentaNYL 100 MCG/2 ML INJ IV ×2 (10:12→10:32)
--- NOTE | 2022-04-30 10:18 | SUR.PHASEI ---
[address] Rodriguez at bedside and assessed pt's abdomen. No new orders given. Dr Rodriguez stated that pt's abdominal distention was normal and would resolve.
[2022-04-30] MEDS: OXYCODONE IR 5 MG TABLET PO (10:40)
--- NOTE | 2022-04-30 10:54 | SUR.OPER ---
DISCUSSED I AND O DEFICIT FOR IRRIGATION FLUID WITH PHYSICIAN (3000 ML), DISCUSSED NOTED BELLY DISTENTION.
--- NOTE | 2022-04-30 12:58 | SUR.PHASEII ---
1140 Cheek unplugged and bladder drained. New cheek bag placed. 1155 patient transferred to the floor with belongings bag and red jacket. Report given to Delmer. VS stable. Cheek and IV patient.
--- NOTE | 2022-04-30 13:18 | PC.NURSE ---
irriagtion 1300 pt stating abdominal discomfort. cheek irrigated with 120cc sterile water. 120 cc in and clear pink 120cc return. no clots noted. pt assisted to sit up and states some improvement.
[2022-04-30] MEDS: ACETAMINOPHEN 325 MG TABLET 650 MG PO ×2 (16:07→20:22)
[2022-04-30] MEDS: LACTATED RINGERS 1,000 ML 100 ML IV (16:08)
[2022-04-30] MEDS: TAMSULOSIN 0.4 MG CAPSULE PO (20:21)
[2022-04-30] MEDS: ATORVASTATIN 20 MG TABLET PO (20:21)
[2022-05-01 00:45] VITALS: BP 132/76; PULSE 60; RESP 18; TEMP 37; O2SAT 95
[2022-05-01 04:25] VITALS: BP 136/69; PULSE 55; RESP 18; TEMP 37.3; O2SAT 98
--- NOTE | 2022-05-01 07:49 | PM.DS.1 ---
History of Present Illness History of Present Illness Date Patient Seen: 05/01/22 Time Patient Seen: 07:49 Chief complaint: TURP PROSTATE/BLADDER TUMORS Narrative: The patient was admitted 04/30/2022 for Transurethral resection of multiple bladder neoplasm and resection of obstructing a protruding intravesical median lobe under general anesthesia. Discharge Providers Provider Date of admission: 04/30/2022 Discharge Date: 05/01/22 Primary care physician: Renard Colby MD Discharge provider: Amy Rodriguez MD Summary Hospital Course Discharge Diagnosis: 1. Multifocal urothelial carcinoma the bladder. 2. Bladder outlet obstruction due to BPH. Hospital Course: The patient was admitted on 04/30/2022 and underwent uncomplicated Transurethral resection of obstructing intravesical median lobe of prostate (that had 3 urothelial carcinoma on urothelial surface), and Transurethral resection of multiple bladder neoplasms. Postop course has been unremarkable. He has been able to tolerate general diet, had return of bowel function in the form of flatus, and would rate his postoperative discomfort as a 2 to 3/10. Exam Vital Signs (past 8 hours): - 05/01/22 00:45 05/01/22 04:25 Temperature 98.6 F 99.2 F Pulse Rate 60 55 L Respiratory Rate 18 18 Blood Pressure 132/76 136/69 Pulse Oximetry 95 98 Oxygen Flow Rate 0 0 Oxygen Delivery Method Room Air Oxygen Flow Rate 0 Narrative Exam Narrative: The patient is sitting upright comfortably in bed in no distress. Chest-equal and unlabored expansion bilaterally. Heart-normal sinus rhythm. Abdomen-soft and nontender. Genitalia-indwelling three-way Espinoza catheter draining to gravity with light straw-colored output. No evidence visibly of bladder clot. Extremity no edema, pallor or cyanosis. [facility] Medical History Bladder calculus BPH w urinary obs/LUTS Chicken pox Chronic anticoagulation Chronic atrial fibrillation Elevated PSA (~1999) Erectile dysfunction Essential hypertension History of nephrolithiasis (~1993) Left ureteral calculus Male circumcision Malignant neoplasm of bladder Measles Mixed hyperlipidemia Mumps Paroxysmal atrial fibrillation (~2021) Plantar warts (~1984) Primary osteoarthritis involving multiple joints Renal calculus, right Skin cancer (~2020) TIA (transient ischemic attack) (~2017) Surgical History Anesthesia H/O hernia repair (~2000) History of appendectomy (~1957) History of lithotripsy History of urologic surgery (04/18/21) Hx of colonoscopy (11/09/21) Skin cancer (~2021) Family History Father Stroke Gout Hypertension Cancer Hyperlipidemia Myasthenia gravis Mother Cancer Sister Cancer Grandfather Cancer Grandmother Cancer Grandfather History of heart disease Grandmother Hypertension Social History marital status: number of children: 4 household members: spouse Smoking Status: Never smoker alcohol intake: current Discharge Assessment & Plan Assessment and Plan Assessment: 1. Stable postop day 1 status post Transurethral resection of prostate and multifocal bladder neoplasms. 2. Pathology pending. 3. Indwelling Espinoza catheter. Plan of Treatment: 1. Discharge home today with indwelling Espinoza catheter. 2. Follow-up on pathology and conduct supervised voiding trial as outpatient in the Urology Clinic. Discharge Plan Discharge orders & Medications Prescriptions: No Action sildenafil 50 mg tablet 50 mg PO DAILY PRN (Reason: sexual activity) Qty: 30 0RF Rx Instructions: administer 30 minutes to 4 hours before activity triamcinolone acetonide 0.1 % cream 1 applic topical DAILY rosuvastatin 10 mg tablet 10 mg PO DAILY Qty: 90 3RF flecainide 100 mg tablet 100 mg PO Q12H metoprolol succinate 25 mg Tablet Extended Release 24 Hr 25 mg PO DAILY Qty: 30 0RF Eliquis 5 mg Tablet 5 mg PO BID Qty: 30 0RF tamsulosin [Flomax] 0.4 mg capsule 0.4 mg PO BEDTIME Qty: 14 0RF potassium citrate 5 mEq (540 mg) tablet extended release 5 meq PO TID Qty: 270 3RF Rx Instructions: Take 1 tablet with each meal. Follow up/Referrals: Renard Colby MD [Primary Care Provider] - Visit Report/Discharge Packet Instructions: How to Care for Your Espinoza Catheter -- Male, DI for Cystoscopy, DI for Transurethral Resection of the Prostate, How to Prevent Falls Discharge Data Primary Care Provider: Renard Colby V Attending Provider: Amy Rodriguez
[2022-05-01 08:36] VITALS: BP 145/70; PULSE 60; TEMP 36.8; O2SAT 98
[2022-05-01] MEDS: METOPROLOL ER 25 MG TABLET PO (09:00)
[2022-05-01] MEDS: FLECAINIDE 100 MG TABLET PO (09:00)
--- NOTE | 2022-05-01 11:05 | CM.DANOTE ---
DCP: Case received, EMR reviewed and met with patient. Introduced self and role. Was able to obtain information regarding patient's baseline activity level at home prior to his surgery, as well as his current living situation. DCP assessment completed with information currently available. Patient is a 77 year old male who admitted yesterday morning to the care of Dr. Morgan, urologist. Payer: confirmed: [employer]. PCP: Dr. Colby. Patient came to the hospital via private vehicle for a surgical procedure. Patient had cystoscopy/Transurethral resection of prostate. Patient has history of multifocal bladder cancer. Met with patient in his room. He is alert and oriented. He has catheter in place. Confirmed that he resides here in [place] with spouse, Indigo. At his baseline, he is independent. He indicated that his sister will be staying with him for an amount of time, stated that his spouse has some trouble getting around, she is scheduled for surgery on 05/09. He indicated she also has cancer. Patient indicated his cancer diagnosis is new for him, may be getting chemo next door. He has some anxiety about the catheter. Briefly mentioned home health, but confirmed that he will be driving, therefor, not considered home bound. He will have a follow up at urology office. Reminded him that nurse will do teaching regarding catheter care at discharge, and how to manage bag. Patient was seen later walking in the hallway. P: Patient has discharge orders for home today. Micaela Castaneda RN/Signal Fitter Discharge Planning/Care Management CM Discharge Assessment Start: 05/01/22 11:02 Freq: Status: Active Protocol: Document 05/01/22 11:02 (Rec: 05/01/22 11:05 [id number]) Discharge Planning Assessment Assigned Music Sound Light Technician Micaela Castaneda RN/Signal Fitter Advance Directives? Yes Advance Directives on File No History Provided By Patient,Medical Record Household Members spouse Type of transporation used prior to Drives own vehicle admit Willing to Return to Facility? No Independent with ADL's Yes Is patient alert and oriented? Yes Caregiver for Another No: does have some mobility issues Barriers to Discharge No Comment Sister will be assisting patient for any needs. Discharge Plan Home Transportation Arrangement Family Referrals Initiated None needed Whiteboard Updated in Patient Room with Yes name and ext. # of Music Sound Light Technician Review Status In Process Next Review Type Continued Stay Review Pre-Anesthesia Assessment Start: 04/24/22 15:08 Freq: Status: Complete Protocol: Document 04/24/22 15:08 CAB (Rec: 04/24/22 15:18 CAB [id number]) Pre-Anesthesia Assessment Patient Information Reviewed Via Chart Review Comment COVID screen @ 04/26/22 Primary Care Provider Renard Colby Seen Specialist in Last 12 Months Yes Specialist Seen Commercial Sales Representative,Manager Access, Emergency,Urologist Primary Language Romanian Preferred Language Romanian Presser And Shaper Knitted Goods Required No Height 6 ft 5 in Weight 179 lb Body Mass Index (BMI) 21.2 Barriers to Learning None Hx Anesthesia Reactions No Hx Family Anesthesia Reaction No Hx Malignant Hyperthermia No Hx Blood Transfusion Reaction No Anesthesia Review Requested No Project Architect No alcohol intake current alcohol intake frequency a few times a week Smoking Status Never smoker Substance Use Type does not use Patient is completely paralyzed or No completely immobile Mental Status Oriented to own ability Hx Sleep Apnea No CPAP/BIPAP use not prescribed Currently Taking a Beta Rao Yes: Metoprolol Anti-Coagulant Therapy Yes: Eliquis-Unknown what instructions given to patient Has a Commercial Sales Representative Yes Commercial Sales Representative name Dr. Quintero Hx Pacemaker/ICD No Pacemaker Rep Required? No Genitourinary Symptoms Hematuria Urinary Catheter Present No Hx Urinary Self Catheterization No Diabetes No Presence of External or Internal Medical No Devices Received a COVID vaccine? Yes: x3 Marital Status Lives With spouse Patient Discharge Plan Description Return Home Do You Have Any Spiritual Beliefs That No May Affect Your HC Choices? Do You Have Any Cultural Practices That No May Affect Your HC Choices? Emergency Contact Name Indigo Lizama Emergency Contact Advance Directives? Yes Advance Directives on File No Power of Fleet Director Yes Power of Fleet Director Name Martir Lizama Power of Fleet Director
--- NOTE | 2022-05-01 14:43 | PC.NURSE ---
Discharge: Pt feels ready to d/c to home. Tolerates diet w/out problems. No pain. UOP is light pink with red sediment in it and it's flowing w/out problems. MD here and gave pt d/c instructions. Worked with pt and , instructing them how to change from leg bag to large drainage bag and back again. and pt change back and forth twice until they felt like they were competent to do it at home. Pt understands he is to start his antibiotics the day before his appointment. Once teaching was completed they felt like they could take him home. Reviewed d/c packet. Pt d/c to home via auto with spouse and his son.
== END 2022-05-01 11:30 | disposition home or self-care (01) ==
LOC: OR 14:26 → AC 14:26
PROVIDERS: Admitting Provider Specialist; PCP Internal Medicine; Referring Provider Specialist; Visit Provider Specialist
PROC: 0VT08ZZ Resection of Prostate, Via Natural or Artificial Opening Endoscopic (ICD-10-PCS; CPT 52601; principal; 2022-04-30 07:45)
DX: C67.8 Malignant neoplasm of overlapping sites of bladder (principal); C61 Malignant neoplasm of prostate; N13.8 Other obstructive and reflux uropathy; R97.20 Elevated prostate specific antigen [PSA]; Z87.442 Personal history of urinary calculi
CPT/HCPCS: 52224; 52601; G0378; J0131; J0690; J2405; J2704; J3010; J9280

== ENCOUNTER → 2022-05-07 10:49 | Outpatient (CLI) | payer MEDICARE, SELFPAY ==
[2022-04-30 12:29] VITALS: BMI 21.3
== END ==
PROVIDERS: PCP Internal Medicine; Referring Provider Specialist; Visit Provider Specialist
DX: C67.9 Malignant neoplasm of bladder, unspecified (principal)
CPT/HCPCS: 36415; 84153

== ENCOUNTER → 2022-05-14 15:00 | Outpatient (CLI) | payer MEDICARE, SELFPAY ==
[2022-04-30 12:29] VITALS: BMI 21.3
[2022-05-14 16:23] LABS: Appearance Urine UA CLEAR; Bilirubin Urine UA NEGATIVE (NEGATIVE); Color Urine UA YELLOW; Glucose Urine UA NEGATIVE (Negative); Ketones Urine UA NEGATIVE (NEGATIVE); Leukocyte Esterase Urine UA TRACE (NEGATIVE); Nitrite Urine UA NEGATIVE (Negative); Occult Blood Urine UA 3+ (Negative); Protein Urine UA 2+ (Negative); Specific Gravity Urine UA >=1.030 (1.000-1.035); Urobilinogen Urine UA 0.2 E.U./dL (0.2); pH Urine UA 5.5 (4.5-8.0)
[2022-05-14 16:37] LABS: Amorphous Sediment Urine 1+; Bacteria Urine Occasional (0-1); Culture Indicated Urine Specimen Cultured; RBC Urine 5-10/HPF (0-5/HPF); WBC Urine 5-10/HPF (0-5/HPF)
== END ==
PROVIDERS: PCP Internal Medicine; Referring Provider Specialist; Visit Provider Specialist
DX: R30.0 Dysuria (principal)
CPT/HCPCS: 81001; 87086

== ENCOUNTER → 2022-06-07 08:40 | Outpatient (CLI) | payer MEDICARE, SELFPAY ==
[2022-04-30 12:29] VITALS: BMI 21.3
[2022-06-07 09:54] LABS: Hematocrit 39.4 % (41-53); Hemoglobin 13.3 g/dL (13.5-17.5); Mean Corpuscular HGB Conc 33.8 % (30-36); Mean Corpuscular Hemoglobin 30.5 PG (26-34); Mean Corpuscular Volume 90.3 fL (80-100); Platelet Count 182 X10^3/uL (150-400); Red Blood Cell Count 4.36 X10^6/uL (4.5-5.9); Red Cell Distribution Width 13.8 % (11.6-14.8); White Blood Cell Count 5.5 X10^3/uL (4.5-11.0)
[2022-06-07 10:04] LABS: Alanine Aminotransferase 31 IU/L (<50); Albumin Globulin Ratio 1.6 (1.0-2.8); Alkaline Phosphatase 52 U/L (38-126); Aspartate Aminotransferase 31 IU/L (17-59); Bilirubin Total 0.5 mg/dL (0.2-1.3); Blood Urea Nitrogen 25 mg/dL (9-20); Calcium 8.9 mg/dL (8.4-10.2); Carbon Dioxide 31 mmol/L (22-32); Chloride 103 mmol/L (98-107); Cholesterol 135 mg/dL (140-199); Estimated Glomerular Filt Rate 60 mL/min (>60); Globulin 2.5 g/dL (1.7-4.1); Glucose 85 mg/dL (80-110); HDL Cholesterol 69 mg/dL (40-60); HEMOLYSIS < 15 (0-50); LDL Cholesterol Calculated 47 mg/dL (<100); Potassium 4.1 mmol/L (3.4-5.1); Sodium 140 mmol/L (137-145); Total Protein 6.5 g/dL (6.3-8.2); Triglycerides 94 mg/dL (35-150)
[2022-06-07 10:29] LABS: Prostate Specific Antigen 5.54 ng/mL (0.10-4.00)
[2022-06-07 10:30] LABS: TSH w/ Reflex to FT4 2.68 uIU/mL (0.47-4.68)
== END ==
PROVIDERS: PCP Internal Medicine; Referring Provider Internal Medicine; Visit Provider Internal Medicine
DX: E78.2 Mixed hyperlipidemia (principal); R97.20 Elevated prostate specific antigen [PSA]; I10 Essential (primary) hypertension; I48.0 Paroxysmal atrial fibrillation
CPT/HCPCS: 36415; 80053; 80061; 84153; 84443; 85027

== ENCOUNTER → 2022-06-14 08:20 | Outpatient (CLI) | payer MEDICARE, SELFPAY ==
[2022-04-30 12:29] VITALS: BMI 21.3
== END ==
PROVIDERS: PCP Internal Medicine; Visit Provider Specialist
DX: N40.1 Benign prostatic hyperplasia with lower urinary tract symptoms (principal); C67.8 Malignant neoplasm of overlapping sites of bladder; N13.8 Other obstructive and reflux uropathy; N21.0 Calculus in bladder
CPT/HCPCS: 51798; 52000; 81002; 87086; 99215

== ENCOUNTER → 2022-07-04 07:47 | Outpatient (CLI) | payer MEDICARE, SELFPAY ==
[2022-06-14 09:14] VITALS: BMI 21.3
[2022-07-04 08:53] LABS: Appearance Urine UA CLEAR; Bilirubin Urine UA NEGATIVE (NEGATIVE); Color Urine UA YELLOW; Glucose Urine UA NEGATIVE (Negative); Ketones Urine UA NEGATIVE (NEGATIVE); Leukocyte Esterase Urine UA TRACE (NEGATIVE); Nitrite Urine UA NEGATIVE (Negative); Occult Blood Urine UA 3+ (Negative); Protein Urine UA TRACE (Negative); Specific Gravity Urine UA >=1.030 (1.000-1.035); Urobilinogen Urine UA 0.2 E.U./dL (0.2); pH Urine UA 5.5 (4.5-8.0)
[2022-07-04 09:09] LABS: Bacteria Urine None Seen; Culture Indicated Urine Specimen Cultured; RBC Urine 5-10/HPF (0-5/HPF); Squamous Epithelial Cell Urine 1-5 /HPF (0-5/HPF); WBC Urine 5-10/HPF (0-5/HPF)
== END ==
PROVIDERS: PCP Internal Medicine; Visit Provider Specialist
DX: C67.9 Malignant neoplasm of bladder, unspecified (principal); N40.1 Benign prostatic hyperplasia with lower urinary tract symptoms; N13.8 Other obstructive and reflux uropathy; N21.0 Calculus in bladder
CPT/HCPCS: 51720; 81001; 81002; 87086; J9030

== ENCOUNTER → 2022-07-11 13:44 | Outpatient (CLI) | payer MEDICARE, SELFPAY ==
[2022-06-14 09:14] VITALS: BMI 21.3
== END ==
PROVIDERS: PCP Internal Medicine; Visit Provider Urology
DX: Z01.812 Encounter for preprocedural laboratory examination (principal); C67.9 Malignant neoplasm of bladder, unspecified
CPT/HCPCS: 51720; 81002; 87086; J9030

== ENCOUNTER → 2022-10-17 08:10 | Outpatient (CLI) | payer MEDICARE, SELFPAY ==
[2022-06-14 09:14] VITALS: BMI 21.3
[2022-10-17 09:06] LABS: Add Manual Diff / Slide Review NO; Basophils Absolute Auto 0 /uL (0-100); Basophils Percent Auto 0.3 % (0-2); Eosinophils Absolute Auto 0 /uL (0-450); Eosinophils Percent Auto 0.6 % (2-4); Hematocrit 41.4 % (41-53); Hemoglobin 14.3 g/dL (13.5-17.5); Lymphocytes Absolute Auto 800 /uL (1100-4500); Lymphocytes Percent Auto 12.2 % (25-40); Mean Corpuscular HGB Conc 34.5 % (30-36); Mean Corpuscular Hemoglobin 30.9 PG (26-34); Mean Corpuscular Volume 89.6 fL (80-100); Monocytes Absolute Auto 700 /uL (0-900); Neutrophils Absolute Auto 5000 /uL (1500-7000); Neutrophils Percent Auto 76.9 % (50-75); Platelet Count 156 X10^3/uL (150-400); Red Blood Cell Count 4.62 X10^6/uL (4.5-5.9); Red Cell Distribution Width 13.5 % (11.6-14.8); White Blood Cell Count 6.5 X10^3/uL (4.5-11.0)
[2022-10-17 09:31] LABS: BUN Creatinine Ratio 17.5 (6-22); Blood Urea Nitrogen 21 mg/dL (9-20); Calcium 9.1 mg/dL (8.4-10.2); Carbon Dioxide 30 mmol/L (22-32); Chloride 103 mmol/L (98-107); Cholesterol 138 mg/dL (140-199); Estimated Glomerular Filt Rate > 60 mL/min (>60); Glucose 100 mg/dL (80-110); HDL Cholesterol 76 mg/dL (40-60); HEMOLYSIS < 15 (0-50); LDL Cholesterol Calculated 50 mg/dL (<100); Potassium 4.5 mmol/L (3.4-5.1); Sodium 140 mmol/L (137-145); Triglycerides 59 mg/dL (35-150)
== END ==
PROVIDERS: PCP Internal Medicine; Referring Provider Internal Medicine Cardiovascular Disease; Visit Provider Internal Medicine Cardiovascular Disease
DX: E78.5 Hyperlipidemia, unspecified (principal); I48.0 Paroxysmal atrial fibrillation; Z79.01 Long term (current) use of anticoagulants
CPT/HCPCS: 36415; 80048; 80061; 85025

== ENCOUNTER → 2022-12-04 08:56 | Outpatient (CLI) | payer MEDICARE, SELFPAY ==
[2022-06-14 09:14] VITALS: BMI 21.3
[2022-12-04 11:59] LABS: Prostate Specific Antigen 8.44 ng/mL (0.10-4.00)
== END ==
PROVIDERS: PCP Internal Medicine; Referring Provider Specialist; Visit Provider Specialist
DX: R97.20 Elevated prostate specific antigen [PSA] (principal)
CPT/HCPCS: 36415; 84153

== ENCOUNTER → 2023-02-25 10:40 | Outpatient (CLI) | payer MEDICARE, SELFPAY ==
[2022-06-14 09:14] VITALS: BMI 21.3
[2023-02-25 13:11] LABS: Prostate Specific Antigen 7.96 ng/mL (0.10-4.00)
== END ==
PROVIDERS: PCP Internal Medicine; Referring Provider Specialist; Visit Provider Specialist
DX: R97.20 Elevated prostate specific antigen [PSA] (principal)
CPT/HCPCS: 36415; 84153

== ENCOUNTER → 2023-05-21 11:38 | Outpatient (CLI) | payer MEDICARE, SELFPAY ==
[2022-06-14 09:14] VITALS: BMI 21.3
[2023-05-23 16:24] LABS: PSA Free % 24.2 % (.); PSA, Total 5.7 ng/mL (0.0-4.0)
== END ==
PROVIDERS: PCP Internal Medicine; Referring Provider Specialist; Visit Provider Specialist
DX: R97.20 Elevated prostate specific antigen [PSA] (principal)
CPT/HCPCS: 36415; 84153; 84154

== ENCOUNTER → 2023-06-10 08:42 | Outpatient (CLI) | payer MEDICARE, SELFPAY ==
[2022-06-14 09:14] VITALS: BMI 21.3
[2023-06-10 09:32] LABS: Hematocrit 45.1 % (41-53); Hemoglobin 15.2 g/dL (13.5-17.5); Mean Corpuscular HGB Conc 33.7 % (30-36); Mean Corpuscular Hemoglobin 30.9 PG (26-34); Mean Corpuscular Volume 91.6 fL (80-100); Platelet Count 186 X10^3/uL (150-400); Red Blood Cell Count 4.93 X10^6/uL (4.5-5.9); Red Cell Distribution Width 14.2 % (11.6-14.8); White Blood Cell Count 6.1 X10^3/uL (4.5-11.0)
[2023-06-10 09:48] LABS: Alanine Aminotransferase 47 IU/L (<50); Albumin 4.3 g/dL (3.5-5.0); Albumin Globulin Ratio 1.5 (1.0-2.8); Alkaline Phosphatase 63 U/L (38-126); Aspartate Aminotransferase 50 IU/L (17-59); BUN Creatinine Ratio 17.5 (6-22); Bilirubin Total 0.8 mg/dL (0.2-1.3); Blood Urea Nitrogen 20 mg/dL (9-20); Calcium 9.6 mg/dL (8.4-10.2); Carbon Dioxide 30 mmol/L (22-32); Chloride 106 mmol/L (98-107); Cholesterol 136 mg/dL (140-199); Estimated Glomerular Filt Rate > 60 mL/min (>60); Globulin 2.8 g/dL (1.7-4.1); Glucose 95 mg/dL (80-110); HDL Cholesterol 68 mg/dL (40-60); HEMOLYSIS < 15 (0-50); LDL Cholesterol Calculated 55 mg/dL (<100); Potassium 4.4 mmol/L (3.4-5.1); Sodium 141 mmol/L (137-145); Total Protein 7.1 g/dL (6.3-8.2); Triglycerides 64 mg/dL (35-150)
[2023-06-10 10:15] LABS: TSH w/ Reflex to FT4 2.77 uIU/mL (0.47-4.68)
== END ==
PROVIDERS: PCP Internal Medicine; Referring Provider Internal Medicine; Visit Provider Internal Medicine
DX: E78.2 Mixed hyperlipidemia (principal); I10 Essential (primary) hypertension
CPT/HCPCS: 36415; 80053; 80061; 84443; 85027

== ENCOUNTER → 2023-10-18 09:58 | Outpatient (CLI) | payer MEDICARE, SELFPAY ==
[2022-06-14 09:14] VITALS: BMI 21.3
[2023-10-18 11:12] LABS: BUN Creatinine Ratio 21.7 (6-22); Blood Urea Nitrogen 26 mg/dL (9-20); Calcium 9.1 mg/dL (8.4-10.2); Carbon Dioxide 30 mmol/L (22-32); Chloride 108 mmol/L (98-107); Estimated Glomerular Filt Rate > 60 mL/min (>60); Glucose 101 mg/dL (80-110); HDL Cholesterol 72 mg/dL (40-60); HEMOLYSIS 16 (0-50); Sodium 141 mmol/L (137-145); Triglycerides 44 mg/dL (35-150)
[2023-10-18 12:42] LABS: Cholesterol 134 mg/dL (140-199); LDL Cholesterol Calculated 53 mg/dL (<100)
== END ==
LOC: LAB 10:00
PROVIDERS: PCP Internal Medicine; Referring Provider Internal Medicine Cardiovascular Disease; Visit Provider Internal Medicine Cardiovascular Disease
DX: E78.5 Hyperlipidemia, unspecified (principal); I48.0 Paroxysmal atrial fibrillation; Z79.01 Long term (current) use of anticoagulants
CPT/HCPCS: 36415; 80048; 80061

== ENCOUNTER → 2023-12-11 14:44 | Outpatient (CLI) | payer MEDICARE, SELFPAY ==
[2022-06-14 09:14] VITALS: BMI 21.3
[2023-12-11 16:40] LABS: Estimated Glomerular Filt Rate 49 mL/min (>60)
== END ==
PROVIDERS: PCP Internal Medicine; Referring Provider Urology; Visit Provider Urology
DX: C67.9 Malignant neoplasm of bladder, unspecified (principal)
CPT/HCPCS: 36415; 82565

== ENCOUNTER → 2024-01-17 08:15 | Outpatient (CLI) | payer MEDICARE, SELFPAY ==
[2022-06-14 09:14] VITALS: BMI 21.3
[2024-01-17 10:05] LABS: Estimated Glomerular Filt Rate 58 mL/min (>60)
== END ==
PROVIDERS: PCP Internal Medicine; Referring Provider Urology; Visit Provider Urology
DX: C67.8 Malignant neoplasm of overlapping sites of bladder (principal)
CPT/HCPCS: 36415; 82565

== ENCOUNTER → 2024-01-18 10:57 | Outpatient (CLI) | payer MEDICARE, SELFPAY ==
[2022-06-14 09:14] VITALS: BMI 21.3
--- NOTE | 2024-01-18 10:59 | DI.CT.S_ITS ---
PROCEDURE: CT IVP A/P W/WO INDICATIONS: 78 y/o M w/ bladder cancer, please eval upper tracts. TECHNIQUE: Optional 5 mm thick noncontrast images acquired from the diaphragm to the symphysis pubis. After the administration of intravenous contrast, 5 mm thick images acquired from the diaphragm to the symphysis pubis after a 10-minute delay. 2 mm thick coronal and sagittal reformats were then performed of the kidneys and ureters. For radiation dose reduction, the following was used: automated exposure control, adjustment of mA and/or kV according to patient size. COMPARISON: [facility], CT, CT IVP A/P W/WO, 03/26/2022, 14:15. FINDINGS: Image quality: Diagnostic. Kidneys and Ureters: Couple of tiny punctate nonobstructing stones within the mid and lower pole right kidney (series 2, images 57 and 61) ranging in size from 1-2 mm. No other renal or ureteral calculi. No solid renal mass. Couple of small hypodense lesions within the left kidney most likely cysts and unchanged from prior study. No urothelial abnormality. Bladder: No bladder calculi. Irregular appearing polypoid mass within the dome of the urinary bladder is less conspicuous on the current study compared to previous exam of 03/26/2022. OTHER: Lower chest: Stable appearing partially imaged cysts within both lung bases. Liver: No solid mass. Gallbladder: No radiopaque gallstones or wall thickening. Biliary ducts: No biliary dilation. Pancreas: No focal mass lesion. No pancreatic duct dilatation or inflammatory changes. Spleen: Size is within normal limits. Adrenal Glands: No adrenal nodules. Stomach and Bowel: Small large bowel appear normal in caliber without evidence of bowel obstruction. Peritoneum: No abnormal intraperitoneal fluid. No free air. Ventral Wall: No hernia. Abdominal Nodes: No retroperitoneal or mesenteric adenopathy by size criteria. Vessels: Aorta and inferior vena cava are normal in size. PELVIS: Pelvic Organs: Prostatomegaly Pelvic Nodes: No enlarged lymph nodes. Miscellaneous: No inguinal hernias are seen. Bones: No aggressive osseous abnormality. IMPRESSION: 1. Irregular polypoid mass within the dome of the urinary bladder seen on previous study is less conspicuous on the current exam. No definite bladder mass is identified. 2. No urothelial abnormality. No solid renal mass. Tiny nonobstructing right renal calculi as described. 3. Prostatomegaly. Dictated by: Afshin Ramos M.D. on 01/20/2024 at 8:16 Approved by: Afshin Ramos M.D. on 01/20/2024 at 9:05
== END ==
LOC: CT 10:58
PROVIDERS: PCP Internal Medicine; Referring Provider Urology; Visit Provider Urology
DX: C67.9 Malignant neoplasm of bladder, unspecified (principal); N40.0 Benign prostatic hyperplasia without lower urinary tract symptoms
CPT/HCPCS: 74178; Q9967

== ENCOUNTER → 2024-04-16 11:48 | Outpatient (CLI) | payer MEDICARE, SELFPAY ==
[2022-06-14 09:14] VITALS: BMI 21.3
[2024-04-16 13:27] LABS: Prostate Specific Antigen 6.57 ng/mL (0.10-4.00)
== END ==
PROVIDERS: PCP Internal Medicine; Referring Provider Urology; Visit Provider Urology
DX: R97.20 Elevated prostate specific antigen [PSA] (principal)
CPT/HCPCS: 36415; 84153

== ENCOUNTER → 2024-06-15 11:56 | Outpatient (CLI) | payer MEDICARE, SELFPAY ==
[2022-06-14 09:14] VITALS: BMI 21.3
[2024-06-15 12:56] LABS: Hematocrit 45.3 % (41-53); Hemoglobin 15.2 g/dL (13.5-17.5); Mean Corpuscular HGB Conc 33.7 % (30-36); Mean Corpuscular Hemoglobin 30.9 PG (26-34); Mean Corpuscular Volume 91.8 fL (80-100); Platelet Count 177 X10^3/uL (150-400); Red Blood Cell Count 4.93 X10^6/uL (4.5-5.9); Red Cell Distribution Width 14.2 % (11.6-14.8); White Blood Cell Count 6.9 X10^3/uL (4.5-11.0)
[2024-06-15 13:16] LABS: Alanine Aminotransferase 36 IU/L (<50); Albumin 4.7 g/dL (3.5-5.0); Albumin Globulin Ratio 1.8 (1.0-2.8); Alkaline Phosphatase 54 U/L (38-126); Aspartate Aminotransferase 43 IU/L (17-59); BUN Creatinine Ratio 20.6 (6-22); Bilirubin Total 0.7 mg/dL (0.2-1.3); Blood Urea Nitrogen 26 mg/dL (9-20); Calcium 9.9 mg/dL (8.4-10.2); Carbon Dioxide 29 mmol/L (22-32); Chloride 102 mmol/L (98-107); Cholesterol 164 mg/dL (140-199); Estimated Glomerular Filt Rate 58 mL/min (>60); Globulin 2.6 g/dL (1.7-4.1); Glucose 90 mg/dL (80-110); HDL Cholesterol 75 mg/dL (40-60); HEMOLYSIS < 15 (0-50); LDL Cholesterol Calculated 70 mg/dL (<100); Potassium 4.5 mmol/L (3.4-5.1); Sodium 140 mmol/L (137-145); Total Protein 7.3 g/dL (6.3-8.2); Triglycerides 93 mg/dL (35-150)
[2024-06-15 13:45] LABS: Prostate Specific Antigen 6.76 ng/mL (0.10-4.00)
== END ==
LOC: LAB 11:56
PROVIDERS: PCP Internal Medicine; Referring Provider Internal Medicine; Visit Provider Internal Medicine
DX: E78.2 Mixed hyperlipidemia (principal); R97.20 Elevated prostate specific antigen [PSA]; I48.0 Paroxysmal atrial fibrillation
CPT/HCPCS: 36415; 80053; 80061; 84153; 85027

== ENCOUNTER → 2024-10-13 12:04 | Outpatient (CLI) | payer MEDICARE, SELFPAY ==
[2022-06-14 09:14] VITALS: BMI 21.3
[2024-10-13 17:17] LABS: Prostate Specific Antigen 7.59 ng/mL (0.10-4.00)
== END ==
PROVIDERS: PCP Internal Medicine; Referring Provider Urology; Visit Provider Urology
DX: N40.1 Benign prostatic hyperplasia with lower urinary tract symptoms (principal); N13.8 Other obstructive and reflux uropathy; R97.20 Elevated prostate specific antigen [PSA]
CPT/HCPCS: 36415; 84153

== ENCOUNTER → 2024-11-12 07:26 | Outpatient (CLI) | payer MEDICARE, SELFPAY ==
[2022-06-14 09:14] VITALS: BMI 21.3
--- NOTE | 2024-11-12 07:27 | DI.MRI.S_ITS ---
PROCEDURE: MR PELVIC PROSTATE PROTOCOL INDICATIONS: 79 y/o M w/ elevated PSA, please eval TECHNIQUE: Coronal HASTE, axial T1 FSE with fat saturation, 3-plane nonbreath-hold T2 FSE. After the administration of contrast, dynamic axial, delayed axial and coronal VIBE or 2-D FLASH with fat saturation through the pelvis. Diffusion weighted imaging and ADC was performed. COMPARISON: [facility], CT, CT IVP A/P W/WO, 01/18/2024, 11:33. FINDINGS: Image quality: Diffusion weighted and dynamic contrast enhanced images are diagnostic. Prostate: Gland size is 5.9 x 5.3 x 4.6 cm; ellipsoid gland volume is 75 mL. No significant foci of intrinsic T1 hyperintensity to suggest hemorrhage. Multiple BPH nodules. No significant areas of ADC hypointensity in the peripheral zone. No suspicious foci of the T2 hypointense signal in the transitional zone. No PI-RADS 4 or 5 observations. Genitourinary system: Bladder wall thickness is normal. Distal ureters are non distended. Bowel and peritoneum: No pathologic free pelvic fluid. Inferior colon and small bowel loops are normal in caliber. Nodes and vessels: No pelvic or inguinal adenopathy by size criteria. Iliac vessels are normal in caliber. Soft tissues: No inguinal hernias. Vasectomy clips. Bones: Marrow demonstrates normal overall signal, without lesions to suggest metastases. IMPRESSION: 1. Marked prostatomegaly with multiple BPH nodules. 2. No PI-RADS 4 or 5 observations. 3. No enlarged lymph nodes. TRUS random biopsy could be considered. Dictated by: Otoniel Desai M.D. on 11/12/2024 at 14:22 Approved by: Otoniel Desai M.D. on 11/12/2024 at 14:37
== END ==
PROVIDERS: PCP Internal Medicine; Referring Provider Urology; Visit Provider Urology
DX: R97.20 Elevated prostate specific antigen [PSA] (principal); N40.2 Nodular prostate without lower urinary tract symptoms
CPT/HCPCS: 72197; A9579

== ENCOUNTER → 2025-01-05 10:45 | Outpatient (CLI) | payer MEDICARE, SELFPAY ==
[2022-06-14 09:14] VITALS: BMI 21.3
[2025-01-05 11:33] LABS: Hematocrit 43.7 % (41-53); Hemoglobin 14.8 g/dL (13.5-17.5); Mean Corpuscular HGB Conc 34.0 % (30-36); Mean Corpuscular Hemoglobin 30.7 PG (26-34); Mean Corpuscular Volume 90.3 fL (80-100); Platelet Count 160 X10^3/uL (150-400)
[2025-01-05 11:59] LABS: Blood Urea Nitrogen 23 mg/dL (9-20); Calcium 9.4 mg/dL (8.4-10.2); Carbon Dioxide 26 mmol/L (22-32); Chloride 104 mmol/L (98-107); Cholesterol 147 mg/dL (140-199); Estimated Glomerular Filt Rate > 60 mL/min (>60); Glucose 102 mg/dL (70-99); HDL Cholesterol 83 mg/dL (40-60); HEMOLYSIS < 15 (0-50); Potassium 4.2 mmol/L (3.4-5.1); Sodium 139 mmol/L (137-145); Triglycerides 66 mg/dL (35-150)
== END ==
PROVIDERS: PCP Internal Medicine; Referring Provider Internal Medicine Cardiovascular Disease; Visit Provider Internal Medicine Cardiovascular Disease
DX: E78.5 Hyperlipidemia, unspecified (principal); I48.0 Paroxysmal atrial fibrillation; Z79.01 Long term (current) use of anticoagulants
CPT/HCPCS: 36415; 80048; 80061; 85027